=== PATIENT | male | born 1940 | race Caucasian/White ===

== ENCOUNTER 2017-03-28 09:40 | Inpatient (IN) ==
[2017-03-28 10:48] LABS: Basophils % 0.2 % (0.0-0.8); Hematocrit 44.5 VOL% (42.0-52.0); Hemoglobin 14.9 GM/DL (14.0-18.0); Immature Granulocytes % 0.4 %; Immature Granulocytes Absolute 0.06 #; Lymphocytes # 0.4 10*3/uL (1.4-4.0); Lymphocytes % 2.5 % (21.2-54.2); Mean Corpuscular HGB Conc 33.5 GM/DL (32-36); Mean Corpuscular Hemoglobin 29 PG (27-34); Mean Corpuscular Volume 87.4 FL (87-102); Mean Platelet Volume 10.7 FL (9.6-12.0); Monocytes # 0.5 10*3/uL (0.11-0.8); Monocytes % 3.7 % (1.7-12.7); Neutrophils % 93.2 % (38.7-73.9); Platelet Count 121 T/CUMM (130-400); Red Blood Count 5.09 MC/CUMM (3.8-5.5); Red Cell Distribution Width 13.2 % (9.3-17.3); White Blood Count 13.9 T/CUMM (4-12)
--- NOTE | 2017-03-28 10:52 | XRay Report ---
History: Chills and fever. Upper back pain Date: 03/28/2017 Study: Chest x-ray single view portable Comparison exam: May 30, 2013 chest x-ray The cardiac silhouette is upper normal in size. There is no mediastinal mass. The pulmonary vasculature is not engorged. The exam was performed in shallow inspiration. There is some patchy strandy atelectasis with or without pneumonia in the left lower lobe. There is mild strandy subsegmental atelectasis in the medial right lung base. There is no gross pleural effusion. The osseous structures are unremarkable. Impression: Left lower lobe atelectasis with or without underlying pneumonia. Subsegmental atelectasis right lung base. Shallow breath PROCEDURE INTERPRETED AT [facility] DEPARTMENT OF RADIOLOGY Final Report Signed by: Dr. Karey Issa
--- NOTE | 2017-03-28 10:54 | EKG Report ---
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
[2017-03-28 11:02] LABS: ABG Oxygen Saturation 93.1 % (95-100); ABG PCO2 32.6 MM HG (35-48); ABG PH 7.393 (7.35-7.45); ABG PO2 63.5 MM HG (80-95); ABG TCO2 16.9 MMOL/L (23-27)
[2017-03-28 11:06] LABS: Band Neutrophils 9 % (0-10); Lymphocytes 2 % (20-55); Segmented Neutrophils 86 % (50-85); Total Cells Counted 100
[2017-03-28 11:07] LABS: Hypochromasia 1+; Microcytosis 1+; Platelet Estimate Adequate
[2017-03-28 11:09] LABS: Apearance,Urine CLOUDY (Clear); Bilirubin,Urine Negative (Negative); Blood, Urine Moderate mg/dL (Negative); Glucose,Urine (UA) Negative (Negative); Ketones,Urine 5 mg/dL (Negative); Mucus,Urine Occasional /LPF (Occasional); Nitrite,Urine Negative (Negative); Protein,Urine 100 MG/DL; RBC,Urine 394 /HPF (0-4); Urine Color Amber (Yellow); Urine Specific Gravity 1.018 (1.001-1.035); WBC,Urine 61 /HPF (0-6)
--- NOTE | 2017-03-28 11:15 | Emergency Department Note ---
Arrival - Arrival Chief Complaint: Back Stated Complaint: back pain ED Nursing Triage Note: Pt c/o mid back pain since last night. Denies injury. Mode of Arrival: Wheelchair Source: Patient Time Seen by Provider: 03/28/17 10:07 - History of Present Illness HPI Narrative: 76 y/o white male presents to the ER complaining of back pain, fever, chills, nausea, and generalized weakness. Symptoms starting last night. Denies vomiting or diarrhea. Reports he has a history of bladder cancer and has had a radical cystectomy and left nephrectomy. Currently has a right nephrostomy tube. Past medical history hypertension, CAD, CABG x 3, NIDDM. Primary Care Physician: Dr. Velasquez in [place] Onset (ago): day(s) (1) Severity: mild Quality: aching Allergies/Adverse Reactions: Allergies Allergy/AdvReac Type Severity Reaction Status Date / Time No Known Allergies Allergy Verified 07/07/16 06:28 Home Medications: Home Medications Medication Instructions Recorded Confirmed Type Ascorbic Acid [Vitamin C] 1 tablet PO DAILY 06/28/16 06/28/16 History Aspirin [Ecotrin] 81 mg PO DAILY 06/28/16 07/07/16 History Losartan [Cozaar] 1 tablet PO DAILY 06/28/16 07/07/16 History Multivitamin [Multivitamins] 1 tablet PO DAILY 06/28/16 06/28/16 History [place]-3 Fatty Acids [Fish Oil 1 tablet PO DAILY 06/28/16 06/28/16 History Concentrate] Sitagliptin Phosphate [Januvia] 1 tablet PO DAILY 06/28/16 07/07/16 History metFORMIN [Glucophage] 1 tablet PO BID 06/28/16 07/07/16 History Allopurinol 100 mg PO DAILY 07/07/16 07/07/16 History Atenolol 50 mg PO DAILY 07/07/16 07/07/16 History Ferrous Sulfate 1 tablet PO DAILY 07/07/16 07/07/16 History Folic Acid Tab 1 tablet PO DAILY 07/07/16 07/07/16 History Glimepiride 4 mg PO DAILY 07/07/16 07/07/16 History Pantoprazole Tab [Protonix Tab] 40 mg PO DAILY 07/07/16 07/07/16 History Review of System - Review of System 12 point system: reviewed and no additional remarkable complaints except as stated - Review of System Constitutional: Present: chills, fever Gastrointestinal: Present: nausea Musculoskeletal: Present: back pain (Right upper ) Neurological: Present: weakness Medical,Surgical,& Family Hx - Medical History Cardio: History of: CAD, Hypertension HEENT: History of: Eye Problem (GLASSES) Endocrine: History of: Diabetes Mellitus (NIDDM) Renal: History of: Renal Problems (NON FUNCTION L KIDNEY) Genitourinary: History of: Bladder Problem (CANCER), Prostate Problems (CANCER) Reproductive: Reports: Reproductive Problems (PENILE PROSTHESIS) Other: History of: Cancer (SKIN), Skin Problems (CANCER) - Surgical History Cardiac Surgeries: Sugical HX of: Cardiac Surgery (CABGX3 DR HER HX BLOCKAGE) Thoracic Surgeries: Surgical HX of;: Nephrectomy (LEFT) Abdominal Surgeries: Surgical HX of: Colonoscopy, EGD Reproductive Surgeries: Surgical HX of;: Prostate Surgery (REMOVAL) - Family History Family History: Reports;: Family Diabetes (MOM), Family Stroke (DAD) - Social History Smoking Status: Never smoker Exam Vital Signs: Vital Signs Temperature 103.1 F H 03/28/17 11:03 Pulse Rate 82 03/28/17 13:40 Respiratory Rate 18 03/28/17 13:40 Blood Pressure 119/51 03/28/17 13:40 O2 Sat by Pulse Oximetry 95 03/28/17 11:03 - General General appearance: alert, in no apparent distress - ENT ENT exam: Present: normal exam, normal oropharynx, mucous membranes moist - Chest Chest inspection: Present: normal inspection - Respiratory Respiratory exam: Present: normal lung sounds bilaterally - Cardiovascular Cardiovascular exam: Present: regular rate, normal rhythm, normal heart sounds - Abdominal Exam Abdominal exam: Present: soft, normal bowel sounds. Absent: tenderness - Extremities Exam Extremities exam: Present: normal inspection, full ROM - Back Exam Back exam: Present: normal inspection. Absent: tenderness, CVA tenderness (R), CVA tenderness (L) - Neurological Exam Neurological exam: Present: alert, oriented X3 - Psychiatric Psychiatric exam: Present: normal affect, normal mood - Skin Skin exam: Present: warm, dry Course Course Narrative: Discussed case with Dr. Aranda. Dr. Aranda over to evaluate patient. Dr. Goodman PA into evaluate patient - Consultations Consultation #1: Dr. Gilliland Time: 13:00 (Dr. Gilliland will come to ER to evaluate patient ) Results - Labs CBC & BMP: 03/28/17 10:28 03/28/17 10:28 Lab Results: I have reviewed the patients labs - Diagnostic Findings Procedure: Chest x-ray: image reviewed by me, report reviewed by me ( atelectasis in lung bases ), Ultrasound: image reviewed by me, report reviewed by me (cholelithiasis and gallbladder wall thickening; consider acute cholelithiasis ) Disposition Clinical Impression: Gallstone pancreatitis Case discussed with: patient Disposition: Still a Patient Condition: Stable
[2017-03-28] MEDS ORDERED: ACETAMINOPHEN 500 MG TABLET ONE ×2 (11:18→11:21)
[2017-03-28] MEDS ORDERED: ACETAMINOPHEN 500 MG TABLET PO STA (11:18)
[2017-03-28] MEDS: ACETAMINOPHEN 325 MG TABLET PO ONE ×2 (11:22→12:17)
[2017-03-28 11:23] LABS: Alanine Aminotransferase 200 U/L (16-61); Albumin 3.5 G/DL (3.4-5.0); Alkaline Phosphatase 288 U/L (45-117); Aspartate Amino Transferase 251 U/L (0-37); Blood Urea Nitrogen 27 MG/DL (7-18); Calcium 9.1 MG/DL (8.5-10.1); Glucose 148 MG/DL (74-106); Osmolality,Calculated 280.8 MOS/KG (273-304); Potassium 3.9 MMOL/L (3.5-5.1); Sodium 137 MMOL/L (136-145); Total Protein 7.1 G/DL (6.4-8.3); Troponin I Only < 0.015 NG/ML (0.00-0.045)
[2017-03-28] MEDS ORDERED: MORPHINE 2 MG/1 ML SYRINGE IV STA (12:21)
[2017-03-28] MEDS ORDERED: MORPHINE 2 MG/1 ML SYRINGE ONE (12:21)
[2017-03-28] MEDS ORDERED: ONDANSETRON 4 MG/2 ML VIAL IV STA (12:21)
[2017-03-28] MEDS ORDERED: ONDANSETRON 4 MG/2 ML VIAL ONE (12:22)
--- NOTE | 2017-03-28 12:47 | Ultrasound Report ---
History: Hematuria. Right flank pain. Elevated bilirubin. Elevated liver function tests Date: 03/28/2017 Study: Abdominal ultrasound complete Comparison exam: July 27, 2012 Real-time ultrasound images are captured and archived. Numerous highly echogenic mobile gallstones with posterior acoustic shadowing are noted in the lumen of the moderately distended gallbladder. There is gallbladder wall thickening at 3.8 mm. The common bile duct is borderline ectatic at 9.2 mm. There is no obvious intrahepatic biliary dilatation. There is hepatopedal flow in the portal vein. There is no gross hepatic mass, though evaluation is limited because of body habitus. The pancreas is obscured by bowel gas. The left kidney is not visualized and reportedly has been surgically removed. The right kidney measures 10.6 mm length and is without hydronephrosis. There is a 19 mm cyst in the mid upper right kidney. This is likely simple, though it is difficult to demonstrate anechoic nature of this cyst because of body habitus. The abdominal aorta is largely obscured. IVC is generally patent. The spleen measures 14.2 x 5.6 x 5.0 cm and contains a lobular hyperechoic area which is nonspecific but may represent hemangioma. Impression: Cholelithiasis and gallbladder wall thickening. Consider acute cholecystitis. Borderline ectasia of the common bile duct at 9.2 mm. Right renal cyst which may be simple, but is difficult to evaluate because of patient body habitus. Prior left nephrectomy. Probable splenic hemangioma PROCEDURE INTERPRETED AT [facility] DEPARTMENT OF RADIOLOGY Final Report Signed by: Dr. Karey Issa
[2017-03-28] MEDS ORDERED: PIPERACILLIN/TAZOBACTAM 3,375 MG in SODIUM CHLORIDE 0.9% 100 ML IV STA (12:54)
[2017-03-28] MEDS ORDERED: PIPERACILLIN/TAZOBACTAM 3,375 MG VIAL IV ONE (13:01)
[2017-03-28] MEDS ORDERED: SODIUM CHLORIDE 0.9% 100 ML IV ONE (13:03)
--- NOTE | 2017-03-28 14:30 | CT Report ---
History: Pancreatitis Date: 03/28/2017 Study: CT abdomen and pelvis without contrast Comparison exam: December 10, 2012 CT abdomen and pelvis with contrast Technique: Spiral CT sections were obtained from the lung bases to the pubic symphysis without contrast. The CT exam was performed using one or more of the following dose reduction techniques: Automated exposure control, adjustment of the mA and/or kV according to patient size, or use of iterative reconstruction technique. CT abdomen: There is mild strandy subsegmental atelectasis in the lower lungs. There is mild to moderate coronary artery calcification. There is no gross pleural or pericardial effusion. There is prominent distention of the gallbladder. There are some gallstones layering in the dependent portion of the gallbladder lumen. The liver and bile ducts are grossly unremarkable in noncontrast appearance. There is mild diffuse fatty infiltration of the pancreas. There is some minimal strandiness in the fat adjacent to the head of the pancreas which could represent a subtle secondary sign of pancreatitis. There is no obvious pseudocyst. There is a 34 mm right adrenal adenoma without change. The left adrenal gland is normal. The left kidney has been resected. There is no gross renal mass on the right, though evaluation is limited without the benefit of IV contrast. There is no radiopaque renal or ureteral stone on the right. The urinary bladder has been resected. A right lower quadrant urostomy is present. There is no evidence of pneumoperitoneum. The appendix is normal. There is no aneurysm of the moderately calcified, aorta. There is no gross lymphadenopathy by short axis diameter criteria. CT pelvis: Penile prosthesis is in place. There is no obvious soft tissue mass in the pelvis. Impression: Cholelithiasis and moderate gallbladder distention. Minimal strandy density in the fat adjacent to the head of the pancreas which could be a secondary sign of pancreatitis Previous cystectomy and left nephrectomy Other nonacute findings discussed above PROCEDURE INTERPRETED AT [facility] DEPARTMENT OF RADIOLOGY Final Report Signed by: Dr. Karey Issa
--- NOTE | 2017-03-28 15:01 | General Surg History&Physical ---
Assessment and Plan (1) Gallstone pancreatitis Status: Acute Assessment and plan: At this juncture, it appears the patient likely has gallstone pancreatitis. We will obtain CT scan. Consult gastroenterology for assistanceappreciate input. We will proceed with aggressive IV hydration, analgesics, n.p.o., and continue with IV antibiotics. It appears the patient may also have associated cholecystitis as he presented febrile with leukocytosis, and there are other possible sources of infection as below. We will follow these along. Repeat labs in the morning. Current Visit: Yes (2) Atelectasis of both lungs Status: Acute Assessment and plan: Is likely complete compensatory with pain he has been having associated with above. Will encourage incentive spirometer and monitor. Oxygen as warranted. No History of pulmonary disease. Current Visit: Yes (3) Urinary tract bacterial infections Status: Acute Assessment and plan: Patient with urostomy bag with gross hematuria. Continue with IV antibiotics, monitor output, monitor renal function, and follow cultures. Current Visit: Yes (4) Renal insufficiency Status: Acute Assessment and plan: Appears chronic patient when compared to previous labs. Has known single kidney status. Avoid nephrotoxic agents, renally dose medications as required, monitor urine output. Repeat labs in the morning. Current Visit: Yes (5) Diabetes mellitus type 2 in obese Status: Acute Assessment and plan: HOld metformin. Resume home meds. Low dose SSI. Current Visit: Yes (6) Co-morbid condition Status: Acute Assessment and plan: H/o HTN - home meds and monitor H/o Gout - home meds and monitor for flare. may be modified if kidney function worsens. H/o CAD s/p CABG - pt maintains active lifestyle and is asx apparently stable. Monitor. Current Visit: Yes (7) Prophylactic measure Status: Acute Assessment and plan: DVT ppx: SCD. Hold lovenox until clear surgical decisions mad.e GI ppx: PPI daily. Dispo: anticipate d/c home when ready Current Visit: Yes History of Present Illness Chief complaint: Back pain History of present illness: Mr. Culp is a 76 year old male with past medical history bladder cancer status post cystectomy with urostomy, left nephrectomy, CAD status post CABG 2010, hypertension and diabetes mellitus who presented to the emergency department with complaints of back pain and suspected fever. The patient reports no history of biliary colic or pancreatitis but he noted feeling "feverish" yesterday evening. Approximately midnight he began to experience severe pain in his back which has persistent is unrelenting. He describes the pain as severe and aching. Improved with leaning forward worse with lying back in his blood sugar improved since receiving analgesics in the emergency department. He reports associated nausea without vomiting or diarrhea; no melena, hematochezia, bright red blood per rectum or reflux symptoms. No anorexia, early satiety or recent weight loss. Patient has a remote history of CAD with CABG performed 12/2010. He follows with Dr. Jc locally. He denies any symptoms of dyspnea on exertion, chest pain, palpitations, PND orthopnea. He describes active lifestyle going to the gym. [place] for 3 days per week walking 1 mile, stationary biking, and lifting weights. Home Medications Medication Instructions Recorded Confirmed Type Ascorbic Acid [Vitamin C] 1 tablet PO DAILY 06/28/16 06/28/16 History Aspirin [Ecotrin] 81 mg PO DAILY 06/28/16 07/07/16 History Losartan [Cozaar] 1 tablet PO DAILY 06/28/16 07/07/16 History Multivitamin [Multivitamins] 1 tablet PO DAILY 06/28/16 06/28/16 History [place]-3 Fatty Acids [Fish Oil 1 tablet PO DAILY 06/28/16 06/28/16 History Concentrate] Sitagliptin Phosphate [Januvia] 1 tablet PO DAILY 06/28/16 07/07/16 History metFORMIN [Glucophage] 1 tablet PO BID 06/28/16 07/07/16 History Allopurinol 100 mg PO DAILY 07/07/16 07/07/16 History Atenolol 50 mg PO DAILY 07/07/16 07/07/16 History Ferrous Sulfate 1 tablet PO DAILY 07/07/16 07/07/16 History Folic Acid Tab 1 tablet PO DAILY 07/07/16 07/07/16 History Glimepiride 4 mg PO DAILY 07/07/16 07/07/16 History Pantoprazole Tab [Protonix Tab] 40 mg PO DAILY 07/07/16 07/07/16 History Allergies Allergy/AdvReac Type Severity Reaction Status Date / Time No Known Allergies Allergy Verified 07/07/16 06:28 Medical,Surgical,& Family Hx - Medical History Cardio: History of: CAD, Hypertension No history of: CHF Neurology: No history of: Cerebrovascular Accident, TIA HEENT: History of: Eye Problem (GLASSES) Endocrine: History of: Diabetes Mellitus (NIDDM) No history of: Thyroid Disorder Respiratory: No history of: Asthma, COPD Renal: History of: Renal Problems (NON FUNCTION L KIDNEY) Genitourinary: History of: Bladder Problem (CANCER), Prostate Problems (CANCER) Gastrointestinal: No history of: Bowel Obstruction, Pancreatitis, GI Problems Hematology: No history of: Bleeding Problems, Clotting Problems Reproductive: Reports: Reproductive Problems (PENILE PROSTHESIS) Other: History of: Cancer (SKIN), Skin Problems (CANCER) - Surgical History Cardiac Surgeries: Sugical HX of: Cardiac Surgery (CABGX3 DR HER HX BLOCKAGE) Thoracic Surgeries: Surgical HX of;: Nephrectomy (LEFT) Abdominal Surgeries: Surgical HX of: Colonoscopy, EGD Reproductive Surgeries: Surgical HX of;: Genitourinary Surgery (Cystectomy with urostomy; penile implant) - Family History Family History: Reports;: Family Diabetes (MOM), Family Stroke (DAD) - Social History Smoking Status: Never smoker Frequency of Alcohol Use: Occasionally Functional capacity: independent ambulation Exam - Constitutional General appearance: no acute distress, over weight - Head Head exam: Present: normal inspection, normocephalic - Respiratory Respiratory exam: Present: clear to auscultation bilaterally - Cardiovascular Cardiovascular exam: Present: RRR - GI/Abdominal GI/Abdominal exam: Present: normal bowel sounds, soft. Absent: ascites, guarding, Caceres's sign, tenderness, rebound - Extremities Exam Extremities exam: Present: normal capillary refill. Absent: calf tenderness, edema - Back Exam Back exam: Absent: CVA tenderness (L), CVA tenderness (R) - Neurological Exam Neurological exam: Present: alert, oriented X3 - Skin Skin exam: Present: normal color, warm. Absent: cyanosis - Constitutional Constitutional: Present: as per HPI - Cardiovascular Cardiovascular: Present: as per HPI - Respiratory Respiratory: Present: as per HPI. Absent: cough, wheezing - Gastrointestinal Gastrointestinal: Present: as per HPI - Genitourinary Genitourinary: Present: hematuria Hematologic/Lymphatic: Absent: easy bleeding, easy bruising Results - Labs CBC & BMP: 03/28/17 10:28 03/28/17 10:28 Labs: ABG reviewed. Lipase > 13K Bili5.3 [id number] UA: (+)ketones; moderate blood; moderate leukocytes; 61 SBC/hpf --> culture pending Cardiac enzymes(-) - EKG EKG shows: sinus rhythm - Diagnostic Findings Procedure: Chest x-ray: image reviewed by me, report reviewed by me, Ultrasound : image reviewed by me, report reviewed by me (abd US: Cholelithiasis with gallbladder thickening concerning for acute cholecystitis; bile duct 9.2 mm. Suspected splenic hemangioma.)
[2017-03-28] MEDS ORDERED: ACETAMINOPHEN 325 MG TABLET PO PRN (15:19)
[2017-03-28] MEDS ORDERED: ONDANSETRON 4 MG/2 ML VIAL IV PRN (15:19)
[2017-03-28] MEDS ORDERED: BISACODYL 5 MG TABLET PO PRN (15:19)
[2017-03-28] MEDS ORDERED: DEXTROSE 50% 25 GM/50 ML VIAL IV PRN (15:19)
[2017-03-28] MEDS ORDERED: GLUCAGON 1 MG VIAL IM PRN (15:19)
[2017-03-28] MEDS: SODIUM CHLORIDE 0.9% 1,000 ML IV SCH ×2 (15:31→21:59)
--- NOTE | 2017-03-28 15:46 | Gastrointestinal Consult Note ---
Assessment and Plan (1) Gallstone pancreatitis Status: Acute Assessment and plan: 03/28-sudden onset of abdominal pain severe in nature, with findings on admission of elevated LFTs, elevated lipase. CT and abdominal ultrasound results noted to show cholelithiasis with dilated common bile duct at 9.2 mm, possible acute cholecystitis. Continue n.p.o., IV fluids and analgesics as needed. Tentative ERCP tomorrow. Plan an addendum to followed by Dr. Issa Current Visit: Yes History of Present Illness Chief complaint: Gallstone pancreatitis History of present illness: Mr. Culp is a 76 year old male who presented to the emergency room with sudden onset of severe abdominal pain. Patient has a prior history of bladder cancer with cystectomy with urostomy as well as left nephrectomy, and CABG in 2010. Patient also has a history of hypertension and diabetes mellitus. Patient states that he was in his usual state of health until yesterday afternoon. He states that he returned from [place], and was not feeling very well. He had an onset of right upper quadrant pain that radiated to his back that was not severe in nature initially however as the night progressed to became more severe. He denies any nausea or vomiting associated with this. Denies any fever or chills although states he did feel "feverish" during the afternoon. He states that he should have come to the emergency room sooner however he was trying to hold out until the morning with the pain. States he has never had pain like this in the past. States the pain was not precipitated by any known factors and states the last meal he ate was 4 hours prior to the pain onset. Upon admission he was found to have elevated liver enzymes with bilirubin of 5.3 , AST 251, ALT 200, alkaline phosphatase 288. He was also found to have an elevated lipase of 13,687. WBCs 13.9. CT of abdomen on admission showed cholelithiasis with moderate gallbladder distention. Abdominal ultrasound shows cholelithiasis and gallbladder wall thickening with possible acute cholecystitis and common bile duct at 9.2 mm. Pancreas is noted to be obscured by bowel gas. Home Medications Medication Instructions Recorded Confirmed Type Ascorbic Acid [Vitamin C] 1 tablet PO DAILY 06/28/16 06/28/16 History Aspirin [Ecotrin] 81 mg PO DAILY 06/28/16 07/07/16 History Losartan [Cozaar] 1 tablet PO DAILY 06/28/16 07/07/16 History Multivitamin [Multivitamins] 1 tablet PO DAILY 06/28/16 06/28/16 History [place]-3 Fatty Acids [Fish Oil 1 tablet PO DAILY 06/28/16 06/28/16 History Concentrate] Sitagliptin Phosphate [Januvia] 1 tablet PO DAILY 06/28/16 07/07/16 History metFORMIN [Glucophage] 1 tablet PO BID 06/28/16 07/07/16 History Allopurinol 100 mg PO DAILY 07/07/16 07/07/16 History Atenolol 50 mg PO DAILY 07/07/16 07/07/16 History Ferrous Sulfate 1 tablet PO DAILY 07/07/16 07/07/16 History Folic Acid Tab 1 tablet PO DAILY 07/07/16 07/07/16 History Glimepiride 4 mg PO DAILY 07/07/16 07/07/16 History Pantoprazole Tab [Protonix Tab] 40 mg PO DAILY 07/07/16 07/07/16 History Allergies Allergy/AdvReac Type Severity Reaction Status Date / Time No Known Allergies Allergy Verified 07/07/16 06:28 Medical,Surgical,& Family Hx - Medical History Cardio: History of: CAD, Hypertension No history of: CHF Neurology: No history of: Cerebrovascular Accident, TIA HEENT: History of: Eye Problem (GLASSES) Endocrine: History of: Diabetes Mellitus (NIDDM) No history of: Thyroid Disorder Respiratory: No history of: Asthma, COPD Renal: History of: Renal Problems (NON FUNCTION L KIDNEY) Genitourinary: History of: Bladder Problem (CANCER), Prostate Problems (CANCER) Gastrointestinal: No history of: Bowel Obstruction, Pancreatitis, GI Problems Hematology: No history of: Bleeding Problems, Clotting Problems Reproductive: Reports: Reproductive Problems (PENILE PROSTHESIS) Other: History of: Cancer (SKIN), Skin Problems (CANCER) - Surgical History Cardiac Surgeries: Sugical HX of: Cardiac Surgery (CABGX3 DR HER HX BLOCKAGE) Thoracic Surgeries: Surgical HX of;: Nephrectomy (LEFT) Patient denies;: Organ Transplant Abdominal Surgeries: Surgical HX of: Colonoscopy, EGD Reproductive Surgeries: Surgical HX of;: Genitourinary Surgery (Cystectomy with urostomy; penile implant), Prostate Surgery (REMOVAL) - Family History Family History: Reports;: Family Diabetes (MOM), Family Stroke (DAD) - Social History Smoking Status: Never smoker Frequency of Alcohol Use: Rarely Type of Drug Use: None 12 point system: reviewed and no additional remarkable complaints except as stated - Constitutional Constitutional: Present: as per HPI - EENT Eyes: Present: as per HPI Ears: Present: as per HPI Nose, mouth and throat: Present: as per HPI - Cardiovascular Cardiovascular: Present: as per HPI - Respiratory Respiratory: Present: as per HPI - Gastrointestinal Gastrointestinal: Present: as per HPI, abdominal pain - Genitourinary Genitourinary: Present: as per HPI - Musculoskeletal Musculoskeletal: Present: as per HPI - Neurological Neurological: Present: as per HPI - Psychiatric Psychiatric: Present: as per HPI - Endocrine Endocrine: Present: as per HPI - Hematologic/Lymphatic Hematologic/Lymphatic: Present: as per HPI Exam - Constitutional General appearance: normal weight, no acute distress - Head Head exam: Present: normal inspection, normocephalic - Eye Eye exam: Present: other (Lids and conjunctive are unremarkable). Absent: scleral icterus - ENT ENT exam: Present: normal exam, normal oropharynx - Neck Neck exam: Present: normal inspection - Respiratory Respiratory exam: Present: clear to auscultation bilaterally. Absent: rales, rhonchi, wheezes - Cardiovascular Cardiovascular exam: Present: regular rate and rhythm. Absent: diastolic murmur , JVD, systolic murmur - GI/Abdominal GI/Abdominal exam: Present: normal bowel sounds, tenderness, soft. Absent: ascites, distended, mass, organomegaly - Extremities Exam Extremities exam: Present: normal inspection, full ROM - Back Exam Back exam: Present: normal inspection - Neurological Exam Neurological exam: Present: alert, oriented X3 - Psychiatric Psychiatric exam: Present: normal affect, normal mood - Skin Skin exam: Present: normal color, warm, dry Results - Labs CBC & BMP: 03/28/17 10:28 03/28/17 10:28 Lab Results: I have reviewed the past 24 hour labs - Diagnostic Findings Procedure: CT Abdomen and Pelvis: report reviewed by me, Ultrasound: report reviewed by me Quality Measures - VTE Contraindication to Pharmacological VTE Prophylaxis: Thrombocytopenia
[2017-03-28] MEDS: INSULIN REGULAR 100 UNIT/ML SUBCUT SCH (18:02)
[2017-03-28] MEDS: PIPERACILLIN/TAZOBACTAM 3,375 MG in SODIUM CHLORIDE 0.9% 100 ML IV SCH (21:58)
[2017-03-29] MEDS: INSULIN REGULAR 100 UNIT/ML SUBCUT SCH ×4 (00:12→17:50)
[2017-03-29] MEDS: PIPERACILLIN/TAZOBACTAM 3,375 MG in SODIUM CHLORIDE 0.9% 100 ML IV SCH ×3 (05:43→21:23)
[2017-03-29 06:28] LABS: Basophils % 0.2 % (0.0-0.8); Hematocrit 39.6 VOL% (42.0-52.0); Hemoglobin 13.1 GM/DL (14.0-18.0); Immature Granulocytes % 0.6 %; Immature Granulocytes Absolute 0.07 #; Lymphocytes # 0.6 10*3/uL (1.4-4.0); Mean Corpuscular HGB Conc 33.1 GM/DL (32-36); Mean Corpuscular Hemoglobin 29 PG (27-34); Mean Corpuscular Volume 86.8 FL (87-102); Mean Platelet Volume 11.8 FL (9.6-12.0); Monocytes # 0.9 10*3/uL (0.11-0.8); Monocytes % 7.1 % (1.7-12.7); Neutrophils # 10.9 10*3/uL (1.4-7.4); Neutrophils % 87.1 % (38.7-73.9); Platelet Count 106 T/CUMM (130-400); Red Blood Count 4.56 MC/CUMM (3.8-5.5); Red Cell Distribution Width 13.7 % (9.3-17.3); White Blood Count 12.5 T/CUMM (4-12)
[2017-03-29 06:50] LABS: Bilirubin,Total 7.9 MG/DL (0.2-1.0); Calcium 7.9 MG/DL (8.5-10.1); Potassium 3.7 MMOL/L (3.5-5.1); Total Protein 5.9 G/DL (6.4-8.3)
[2017-03-29] MEDS: SODIUM CHLORIDE 0.9% 1,000 ML IV SCH (07:31)
[2017-03-29 07:33] LABS: INR 1.4; PT Patient Result 14.6 SECS
[2017-03-29] MEDS: ATENOLOL 50 MG TABLET PO SCH (08:48)
[2017-03-29] MEDS ORDERED: KETOROLAC 30 MG/1 ML VIAL ONE (09:05)
[2017-03-29] MEDS ORDERED: LIDOCAINE 100 MG/5 ML SYRINGE ONE (09:05)
[2017-03-29] MEDS ORDERED: GLYCOPYRROLATE 0.4 MG/2 ML VIAL ONE (09:05)
[2017-03-29] MEDS ORDERED: ROCURONIUM 100 MG/10 ML VIAL IV ONE (09:05)
[2017-03-29] MEDS ORDERED: SUCCINYLCHOLINE 200 MG/10 ML VIAL ONE (09:05)
[2017-03-29] MEDS ORDERED: PHENYLEPHRINE 1 MG/10 ML SYRINGE IV ONE (09:05)
[2017-03-29] MEDS ORDERED: ONDANSETRON 4 MG/2 ML VIAL ONE ×2 (09:05→12:24)
[2017-03-29] MEDS ORDERED: LACTATED RINGERS 500 ML IV ONE (09:30)
--- NOTE | 2017-03-29 09:30 | General Surgery Progress Note ---
Assessment and Plan (1) Gallstone pancreatitis Status: Acute Assessment and plan: The patient's bilirubin is going up and his creatinine has worsened some. We will get increased IV fluids going and continue antibiotics. His antibiotics have a consult placed for pharmacy to dose this based on renal function will make sure that this is done. Plan for ERCP today and ultimately he will need his gallbladder removed before discharge. Current Visit: Yes Subjective Patient reports: Present: no new complaints, feels better, still having pain, pain is less, afebrile Narrative: The patient had 2 blood cultures come back with gram-negative rods and his bilirubin is going up today. His pancreatitis appears to be improving at least on a serology with a decreased lipase today. Dr. Issa has seen him and tentatively plan for ERCP today. Exam - Constitutional Vitals: Period Temp Pulse Resp BP Sys/Lantigua Pulse Ox Last 24 Hr 97 F-98.5 F 57-84 16-20 110-118/50-59 90-96 General appearance: no acute distress, over weight - Head Head exam: Present: normal inspection, normocephalic - Eye Eye exam: Present: EOMI Pupils: Present: AIDEN - ENT ENT exam: Present: normal exam Mouth exam: Present: normal external inspection, normal voice - Neck Neck exam: Present: normal inspection, trachea midline - Respiratory Respiratory exam: Present: clear to auscultation bilaterally. Absent: accessory muscle use, chest wall tenderness - Cardiovascular Cardiovascular exam: Present: RRR. Absent: systolic murmur, tachycardia - GI/Abdominal GI/Abdominal exam: Present: normal bowel sounds, soft. Absent: distended, tenderness, rebound - Extremities Exam Extremities exam: Present: normal inspection, normal capillary refill - Back Exam Back exam: Present: normal inspection - Neurological Exam Neurological exam: Present: alert, oriented X3 Speech: Present: normal - Skin Skin exam: Present: normal color, warm Results - Labs CBC & BMP: 03/29/17 04:59 03/29/17 04:59 Quality Measures - VTE Contraindication to Pharmacological VTE Prophylaxis: Thrombocytopenia
--- NOTE | 2017-03-29 12:02 | Cardiology Consult Note ---
Ella Wallace April, RN, am scribing for, and in the presence of, SoledadShirleyDO 11 :59. Assessment and Plan - Time spent with patient Time spent with patient: Greater than 30 minutes (Due to assessment, planning, documentation, medication review) (1) Preoperative cardiovascular examination Status: Acute Assessment and plan: No further CV work up of evaluation prior to proposed surgcial intervention. Current Visit: Yes (2) CAD (coronary artery disease) Status: Chronic Current Visit: Yes Qualifiers: Coronary Disease-Associated Artery/Lesion type: bypass graft [place] vs. 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 Culp is a 76 year old male who is routinely followed by Dr. Jc with a history of hypertension, dyslipidemia, malignant neoplasm of the bladder, CAD, and NIDDM. He had CABG by Dr. Her in March 2011 with MARSHALL to LAD, saphenous vein graft to ramus intermedius, and saphenous vein graft to obtuse marginal. He has not had a heart cath since that time. Other surgical history includes left nephrectomy, cystectomy with urostomy, hernia repair, prostate, and penile implant. Family history includes father with stroke and mother with diabetes. Reports is a lifetime non-smoker. He was in his usual state of health until midnight when he began to have pain in the middle part of his back. He denies having any chest pain, shortness of breath, nausea, or vomiting. His back pain was associated with a "chill". CT of the abdomen noted cholelithiasis and mild common bile duct dilation. He tells me he is scheduled for ERCP with Dr. Issa today with possible cholecystectomy tomorrow. He reports he was given morphine in the emergency department and this relieved his pain. He has not had any chest pain, shortness of breath, palpitations, or dizziness. Vital signs been stable, blood pressure 117/56. His platelet count is low at 106. Creatinine was 1.6 on admission, it is 2.0 today. His liver enzymes are elevated. EKG done yesterday sinus rhythm with heart rate of 81. Mr. Vigil is a very active and pleasant 76-year-old patient Dr. Awais Jc who had an abnormal stress test in 2010 after generalized complaint of fatigue found to have severe three-vessel coronary disease and underwent coronary bypass grafting by Dr. Angus Her. He is now in with pancreatitis and schedule for ERCP followed by cholecystectomy. He has no cardiopulmonary complaints. He lives independently. I have seen him in the gym and [employer] he walks and works out with weights on daily basis without any cardiopulmonary symptoms. His EKG shows no acute changes he has no orthopnea he has no chest pain no lower extremity edema no signs or symptoms of heart failure including rales lower extremity edema or orthopnea. I discussed with him he has a completely negative review of systems from a cardiopulmonary standpoint I recommend proceed with proposed cholecystectomy and ERCP without further cardiovascular workup or evaluation. We will continue to follow if assistance is needed. I saw and examined the patient with Ella and agree with her assessment in the above history. CC: Obi Gilliland MD - Home Medications and Allergies Home Medications: Home Medications Medication Instructions Recorded Confirmed Type Ascorbic Acid [Vitamin C] 1 tablet PO DAILY 06/28/16 03/28/17 History Aspirin [Ecotrin] 81 mg PO DAILY 06/28/16 03/28/17 History Multivitamin [Multivitamins] 1 tablet PO DAILY 06/28/16 03/28/17 History [place]-3 Fatty Acids [Fish Oil 1 tablet PO DAILY 06/28/16 03/28/17 History Concentrate] Sitagliptin Phosphate [Januvia] 1 tablet PO DAILY 06/28/16 03/28/17 History metFORMIN [Glucophage] 1 tablet PO BID 06/28/16 03/28/17 History Allopurinol 100 mg PO DAILY 07/07/16 03/28/17 History Atenolol 25 mg PO DAILY 07/07/16 03/28/17 History Ferrous Sulfate 1 tablet PO DAILY 07/07/16 03/28/17 History Folic Acid Tab 1 tablet PO DAILY 07/07/16 03/28/17 History Glimepiride 4 mg PO DAILY 07/07/16 03/28/17 History Pantoprazole Tab [Protonix Tab] 40 mg PO DAILY 07/07/16 03/28/17 History Atorvastatin [Lipitor] 20 mg PO DAILY 03/28/17 03/28/17 History Losartan Potassium [Cozaar] 100 mg PO DAILY 03/28/17 03/28/17 History Allergies/Adverse Reactions: Allergies Allergy/AdvReac Type Severity Reaction Status Date / Time No Known Allergies Allergy Verified 07/07/16 06:28 - Constitutional Constitutional: Present: as per HPI - EENT Eyes: Present: requires corrective lense Ears: Absent: decreased hearing, tinnitus Nose, mouth and throat: Absent: dysphagia, epistaxis, headache(s), neck pain, sore throat - Cardiovascular Cardiovascular: Absent: chest pain at rest, chest pain with activity, diaphoresis, dyspnea, dyspnea on exertion, edema, radiating jaw, neck or arm pain, lightheadedness, orthopnea, palpitations - Respiratory Respiratory: Absent: cough, dyspnea, hemoptysis, dyspnea on exertion, wheezing - Gastrointestinal Gastrointestinal: Absent: abdominal pain, constipation, diarrhea, hematemesis, hematochezia, melena, nausea, vomiting - Genitourinary Genitourinary: Present: hematuria, other (Urostomy) - Musculoskeletal Musculoskeletal: Present: back pain. Absent: limited range of motion, muscle weakness - Neurological Neurological: Absent: abnormal gait, abnormal speech, confusion, dizziness, focal weakness, frequent falls, syncope - Psychiatric Psychiatric: Absent: anxiety, depression - Endocrine Endocrine: Present: fatigue - Hematologic/Lymphatic Hematologic/Lymphatic: Absent: easy bleeding, easy bruising Medical,Surgical,& Family Hx - Medical History Cardio: History of: CAD (No previous VT and EF has been preserved. CABG 2010- Bernabe), Hypertension HEENT: History of: Eye Problem (GLASSES) Endocrine: History of: Diabetes Mellitus (NIDDM) Renal: History of: Renal Problems (Left nephrectomy) Genitourinary: History of: Bladder Problem (CANCER), Prostate Problems (CANCER) Reproductive: Reports: Reproductive Problems (PENILE PROSTHESIS) Other: History of: Cancer (SKIN), Skin Problems (CANCER) - Surgical History Cardiac Surgeries: Sugical HX of: Cardiac Surgery (CABGX3 DR HER 2010) Thoracic Surgeries: Surgical HX of;: Nephrectomy (LEFT) Abdominal Surgeries: Surgical HX of: Colonoscopy, EGD Reproductive Surgeries: Surgical HX of;: Genitourinary Surgery (Cystectomy with urostomy; penile implant), Prostate Surgery (REMOVAL) - Family History Family History: Reports;: Family Diabetes (MOM), Family Stroke (DAD) - Social History Smoking Status: Never smoker Have you smoked in the last 12 months: No Frequency of Alcohol Use: None Type of Drug Use: None Marital Status: Life Partner Lives With:: Children Functional capacity: independent ambulation Physical Examination Vital Signs Temp Pulse Resp BP Pulse Ox 99.3 F 81 18 120/72 94 L 03/28/17 09:41 03/28/17 09:41 03/28/17 09:41 03/28/17 09:41 03/28/17 09:41 General: Present: Appears Well, No Apparent Distress HEENT: Present: PERRL, Mucus Membranes Moist Neck: Present: Supple Neck, Midline Trachea, No Bruit Cardiac: Present: Regular Rhythm, No Murmur Lungs: Present: Normal Breath Sounds, No Wheeze, Rales, Rhonchi Neuro: Absent: Resting Tremor, Essential Tremor Abdomen: Present: Soft, Active Bowel Sounds, Non-Tender. Absent: Distended Skin: Absent: Rash, Suspicious Lesions Gait: Present: Normal Gait Extremities: Present: Normal Gait, No Edema, Normal Upper Extr. Pulses, Normal Lower Extr. Pulses Result/EKG - Labs CBC & BMP: 03/29/17 04:59 03/29/17 04:59 Lab Results: I have reviewed the past 24 hour labs Labs: Laboratory Results - last 24 hr 03/28/17 03/28/17 03/28/17 17:06 17:53 20:25 WBC RBC Hgb Hct MCV MCH MCHC RDW Plt Count MPV Neut % (Auto) Lymph % (Auto) [place] % (Auto) Eos % (Auto) Baso % (Auto) Neut # (Auto) Lymph # (Auto) [place] # (Auto) Eos # (Auto) Baso # (Auto) Immature Gran % Nucleated RBC % Immature Gran # Nucleated RBCs # INR PT Patient/Control Mix Sodium Potassium Chloride Carbon Dioxide Anion Gap BUN Creatinine GFR Calculation BUN/Creatinine Ratio Glucose POC Glucose 231 H 247 H 257 H Calculated Osmolality Calcium Total Bilirubin Direct Bilirubin AST ALT Alkaline Phosphatase Total Protein Albumin Globulin Albumin/Globulin Ratio Lipase 03/28/17 03/29/17 03/29/17 23:32 04:59 04:59 WBC 12.5 H RBC 4.56 Hgb 13.1 L Hct 39.6 L MCV 86.8 L MCH 29 MCHC 33.1 RDW 13.7 Plt Count 106 L MPV 11.8 Neut % (Auto) 87.1 H Lymph % (Auto) 5.0 L Johnston % (Auto) 7.1 Eos % (Auto) 0.0 Baso % (Auto) 0.2 Neut # (Auto) 10.9 H Lymph # (Auto) 0.6 L Johnston # (Auto) 0.9 H Eos # (Auto) 0.0 Baso # (Auto) 0.0 Immature Gran % 0.6 Nucleated RBC % 0.0 Immature Gran # 0.07 Nucleated RBCs # 0.00 INR PT Patient/Control Mix Sodium Potassium Chloride Carbon Dioxide Anion Gap BUN Creatinine GFR Calculation BUN/Creatinine Ratio Glucose POC Glucose 248 H Calculated Osmolality Calcium Total Bilirubin Direct Bilirubin AST ALT Alkaline Phosphatase Total Protein Albumin Globulin Albumin/Globulin Ratio Lipase 2642.0 H D 03/29/17 03/29/17 03/29/17 04:59 04:59 05:45 WBC RBC Hgb Hct MCV MCH MCHC RDW Plt Count MPV Neut % (Auto) Lymph % (Auto) Johnston % (Auto) Eos % (Auto) Baso % (Auto) Neut # (Auto) Lymph # (Auto) Johnston # (Auto) Eos # (Auto) Baso # (Auto) Immature Gran % Nucleated RBC % Immature Gran # Nucleated RBCs # INR PT Patient/Control Mix Sodium 143 Potassium 3.7 Chloride 110 H Carbon Dioxide 24 Anion Gap 12.7 BUN 37 H D Creatinine 2.00 H GFR Calculation 45 BUN/Creatinine Ratio 18.00 Glucose 150 H POC Glucose 138 H Calculated Osmolality 296.0 Calcium 7.9 L Total Bilirubin 7.90 H Direct Bilirubin 5.30 H AST 145 H ALT 202 H Alkaline Phosphatase 223 H Total Protein 5.9 L Albumin 3.0 L Globulin 2.9 Albumin/Globulin Ratio 1.0 L Lipase 03/29/17 07:13 WBC RBC Hgb Hct MCV MCH MCHC RDW Plt Count MPV Neut % (Auto) Lymph % (Auto) [place] % (Auto) Eos % (Auto) Baso % (Auto) Neut # (Auto) Lymph # (Auto) [place] # (Auto) Eos # (Auto) Baso # (Auto) Immature Gran % Nucleated RBC % Immature Gran # Nucleated RBCs # INR 1.4 PT Patient/Control Mix 14.6 Sodium Potassium Chloride Carbon Dioxide Anion Gap BUN Creatinine GFR Calculation BUN/Creatinine Ratio Glucose POC Glucose Calculated Osmolality Calcium Total Bilirubin Direct Bilirubin AST ALT Alkaline Phosphatase Total Protein Albumin Globulin Albumin/Globulin Ratio Lipase - Diagnostic Findings Procedure: Chest x-ray: report reviewed by me, CT Abdomen and Pelvis: report reviewed by me, Ultrasound: report reviewed by me - EKG EKG results: interpreted by me EKG shows: sinus rhythm Quality Measures - VTE Contraindication to Pharmacological VTE Prophylaxis: Thrombocytopenia I, Shirley Rowe, DO, personally performed the services described in this documentation, ascribed by Mahnaz Jaramillo RN in my presence, and it is both accurate and complete .
[2017-03-29] MEDS ORDERED: fentaNYL 100 MCG/2 ML VIAL ONE (12:13)
[2017-03-29] MEDS ORDERED: MIDAZOLAM 2 MG/2 ML VIAL ONE (12:13)
[2017-03-29] MEDS ORDERED: LIDOCAINE 2% 5 ML VIAL ONE (12:24)
[2017-03-29] MEDS ORDERED: PROPOFOL 200 MG/20 ML VIAL IV ONE (12:24)
--- NOTE | 2017-03-29 12:25 | History and Physical Update ---
History and Physical Update - History and Physical H&P was reviewed, the patient examined and there: are no changes in the patients condition since last H&P was completed. - Physical Exam Mental Status: alert and oriented Heart: regular rate and rhythm Lung: clear to auscultation Abdomen: within normal limits Vitals: within normal limits
--- NOTE | 2017-03-29 13:09 | Anesthesia Post-Op ---
Anesthesia Post OP - Post Ansesthetic Evaluation Patient seen in post op: Yes Resp: within normal limits CV: within normal limits Mental: within normal limits Temp: within normal limits [id number]: within normal limits Nausea and Vomiting: within normal limits Pain: within normal limits
--- NOTE | 2017-03-29 13:13 | Operative Note ---
Date of procedure: 03/29/17 Pre-op diagnosis: Gallstone pancreatitis, dilated common bile duct Procedure: Procedure: Endoscopic retrograde cholangiopancreatography with common bile duct sphincterotomy and common bile duct stones/sludge removal with balloon Brief clinical abstract: Patient is a 76-year-old male admitted with acute pancreatitis. He is noted to have evidence of obstructive jaundice and gallstones on imaging. His total bilirubin was 7 today. Procedure findings: After informed consent was obtained, patient was placed in the prone position. Therapeutic video duodenoscope was inserted into the upper esophagus in blind fashion with no resistance encountered. Esophageal mucosa appeared normal. Stomach was examined including retroflexed view of the cardia and fundus with no abnormality seen. I had difficulty intubating the pylorus in this position so we repositioned him into the left lateral decubitus position where he remained for the remainder of the procedure. Pyloric channel , duodenal bulb, second and third portion of the duodenum occluding the appearance of the ampulla were normal. Sphincterotome was used and initially pancreatogram obtained. Head neck body and tail were opacified with normal appearance and caliber of the pancreatic duct. The endoscope was repositioned. Common bile duct was deeply cannulated with sphincterotome and 0.035 inch guidewire. Biliary tree was filled with contrast. At least 2 filling defects were noted in the mid and distal common bile duct consistent with stones with 1 of these around 1 cm diameter and the other smaller size. Right and left intrahepatic systems appeared normal. Common bile duct and common hepatic duct were moderately dilated to over 12 mm diameter maximally. Cystic duct was patent partially filling the gallbladder. Common bile duct sphincterotomy was performed over the guidewire to over 1 cm diameter. No significant bleeding was noted from the sphincterotomy site. The sphincterotome was removed and then occlusion balloon advanced over the guidewire into the proximal common hepatic duct. This was dragged distally into the duodenum with 4 separate passes made. Both stones passed into the duodenum and a large amount of brownish colored sludge with some purulence. Occlusion cholangiogram was obtained afterwards with no residual filling defects seen. There was excellent drainage through the sphincterotomy opening. Impression: #1 choledocholithiasis-status post endoscopic removal as above #2 dilated biliary tree related to #1 #3 cholelithiasis #4 normal pancreatogram Recommendations: Cholecystectomy as planned. Anesthesia: MAC Surgeon / Physician: Sunny Issa Estimated blood loss: minimal Specimens: none sent Condition: stable Disposition: post procedure unit Results - Labs CBC & BMP: 03/29/17 04:59 03/29/17 04:59 Discharge Plan - Discharge Medications No Action metFORMIN [Glucophage] 1 tablet PO BID Aspirin [Ecotrin] 81 mg PO DAILY Sitagliptin Phosphate [Januvia] 1 tablet PO DAILY Ascorbic Acid [Vitamin C] 1 tablet PO DAILY Multivitamin [Multivitamins] 1 tablet PO DAILY [place]-3 Fatty Acids [Fish Oil Concentrate] 1 tablet PO DAILY Folic Acid Tab 1 tablet PO DAILY Ferrous Sulfate 1 tablet PO DAILY Pantoprazole Tab [Protonix Tab] 40 mg PO DAILY Glimepiride 4 mg PO DAILY Atenolol 25 mg PO DAILY Allopurinol 100 mg PO DAILY Losartan Potassium [Cozaar] 100 mg PO DAILY Atorvastatin [Lipitor] 20 mg PO DAILY - Follow Up or Referral - Forms/Instructions
--- NOTE | 2017-03-29 15:52 | Fluoroscopy Report ---
[place] ERCP w sphincterotomy Indication: Gallstone pancreatitis with obstructive jaundice. ERCP: Fluoroscopy time 6 minutes 16 seconds with 10 captured images. 12 cc contrast injection. Sequential images show no biliary duct dilatation. On the first set of images, a filling defect in the CBD likely represents a stone. Balloon sweep of the biliary collecting system isn't performed and final image shows no residual filling defect. Contrast does extend into the gallbladder. Impression: No residual filling defects after balloon sweep of the CBD. PROCEDURE INTERPRETED AT [facility] DEPARTMENT OF RADIOLOGY Final Report Signed by: Augusto Mosher M.D.
[2017-03-29] MEDS: sitaGLIPtin 25 MG TABLET PO SCH (16:53)
[2017-03-29] MEDS: ALLOPURINOL 100 MG TABLET PO SCH (16:53)
[2017-03-29] MEDS: PANTOPRAZOLE 40 MG TABLET PO SCH (16:53)
[2017-03-29] MEDS: GLIMEPIRIDE 4 MG TABLET PO SCH (16:53)
[2017-03-29] MEDS: ASPIRIN EC 81 MG TABLET PO SCH (16:53)
[2017-03-29] MEDS: MORPHINE 2 MG/1 ML SYRINGE IV PRN (18:44)
[2017-03-30] MEDS: INSULIN REGULAR 100 UNIT/ML SUBCUT SCH ×4 (00:11→18:24)
[2017-03-30] MEDS: SODIUM CHLORIDE 0.9% 1,000 ML IV SCH ×7 (04:36→22:15)
[2017-03-30] MEDS: MORPHINE 2 MG/1 ML SYRINGE IV PRN ×3 (04:38→20:00)
[2017-03-30] MEDS: PIPERACILLIN/TAZOBACTAM 3,375 MG in SODIUM CHLORIDE 0.9% 100 ML IV SCH ×3 (04:49→20:52)
[2017-03-30 05:06] LABS: Basophils % 0.3 % (0.0-0.8); Eosinophils # 0.1 10*3/uL (0.0-0.87); Eosinophils % 1.6 % (0.00-10.9); Hematocrit 39.7 VOL% (42.0-52.0); Hemoglobin 13.2 GM/DL (14.0-18.0); Immature Granulocytes % 0.5 %; Immature Granulocytes Absolute 0.04 #; Lymphocytes # 0.5 10*3/uL (1.4-4.0); Lymphocytes % 5.9 % (21.2-54.2); Mean Corpuscular HGB Conc 33.2 GM/DL (32-36); Mean Corpuscular Hemoglobin 29 PG (27-34); Mean Corpuscular Volume 87.4 FL (87-102); Mean Platelet Volume 11.5 FL (9.6-12.0); Monocytes # 0.6 10*3/uL (0.11-0.8); Neutrophils # 6.7 10*3/uL (1.4-7.4); Neutrophils % 83.7 % (38.7-73.9); Red Blood Count 4.54 MC/CUMM (3.8-5.5); Red Cell Distribution Width 13.9 % (9.3-17.3)
[2017-03-30 05:10] LABS: Platelet Count 94 T/CUMM (130-400)
[2017-03-30 05:36] LABS: Albumin 2.7 G/DL (3.4-5.0); Bilirubin,Total 4.2 MG/DL (0.2-1.0); Calcium 8.1 MG/DL (8.5-10.1); Osmolality,Calculated 299.8 MOS/KG (273-304); Potassium 4.1 MMOL/L (3.5-5.1); Total Protein 5.5 G/DL (6.4-8.3)
[2017-03-30 05:52] LABS: Microcytosis Slight; Platelet Estimate Decreased
[2017-03-30] MEDS: ATENOLOL 50 MG TABLET PO SCH ×2 (07:46→10:35)
[2017-03-30] MEDS ORDERED: TISSUE ADHESIVE 1 EACH APPLICATOR TOP ONE (08:54)
[2017-03-30] MEDS ORDERED: BUPIVACAINE MPF 0.25% /EPI 30 ML VIAL ONE (08:56)
[2017-03-30] MEDS: ASPIRIN EC 81 MG TABLET PO SCH (10:34)
[2017-03-30] MEDS: GLIMEPIRIDE 4 MG TABLET PO SCH (10:34)
[2017-03-30] MEDS: sitaGLIPtin 25 MG TABLET PO SCH (10:34)
[2017-03-30] MEDS: PANTOPRAZOLE 40 MG TABLET PO SCH (10:34)
[2017-03-30] MEDS: ALLOPURINOL 100 MG TABLET PO SCH (10:35)
[2017-03-30] MEDS ORDERED: ACETAMINOPHEN 1,000 MG/100 ML VIAL IV ONE (10:48)
[2017-03-30] MEDS ORDERED: DESFLURANE 1 UNIT/15 MINUTE INH ONE (10:48)
[2017-03-30] MEDS ORDERED: fentaNYL 100 MCG/2 ML VIAL ONE (10:48)
[2017-03-30] MEDS ORDERED: MIDAZOLAM 2 MG/2 ML VIAL ONE (10:48)
--- NOTE | 2017-03-30 12:26 | Anesthesia Post-Op ---
Anesthesia Post OP - Post Ansesthetic Evaluation Patient seen in post op: Yes Resp: within normal limits CV: within normal limits Mental: within normal limits Temp: within normal limits [id number]: within normal limits Nausea and Vomiting: within normal limits Pain: within normal limits
--- NOTE | 2017-03-30 12:29 | Gastrointestinal Progress Note ---
Assessment and Plan (1) Gallstone pancreatitis Status: Acute Assessment and plan: 03/30-immediate postop laparoscopic cholecystectomy. Operative report and cholangiogram pending at present time. LFTs slowly trending downward. Plan an addendum to followed by Dr. Issa. 03/28-sudden onset of abdominal pain severe in nature, with findings on admission of elevated LFTs, elevated lipase. CT and abdominal ultrasound results noted to show cholelithiasis with dilated common bile duct at 9.2 mm, possible acute cholecystitis. Continue n.p.o., IV fluids and analgesics as needed. Tentative ERCP tomorrow. Plan an addendum to followed by Dr. Issa Current Visit: Yes Gastroenterology - PN: Subj Interval history: CC: Gallstone pancreatitis Patient is seen immediately post recovery following laparoscopic cholecystectomy today. Patient is still rather groggy under the effects of anesthesia however states he is having no abdominal pain, just complaints of right lower back pain that he feels like his muscle related. Abdomen is soft, nontender. He is noted to have LU [address] Operative reports and intraoperative cholangiogram is still pending at this time. His bilirubin is trended down to 4.2 and transaminases are trending downwards as well. Lipase is 1459 today. WBCs are down to 8000. ROS: Denies shortness of breath or chest pain Exam (Progress Note) - Constitutional Vitals: Period Temp Pulse Resp BP Sys/Lantigua Pulse Ox Last 24 Hr 97 F-98.7 F 50-89 16-20 107-165/53-74 92-96 General appearance: normal weight, no acute distress - Head Head exam: Present: normal inspection, normocephalic - Eye Eye exam: Present: other (Lids and conjunctivae unremarked). Absent: scleral icterus - ENT ENT exam: Present: normal exam, normal oropharynx - Neck Neck exam: Present: normal inspection - Respiratory Respiratory exam: Present: clear to auscultation bilaterally. Absent: rales, rhonchi, wheezes - Cardiovascular Cardiovascular exam: Present: regular rate and rhythm. Absent: diastolic murmur , JVD, systolic murmur - GI/Abdominal GI/Abdominal exam: Present: normal bowel sounds, soft. Absent: ascites, distended, mass, organomegaly, tenderness - Extremities Exam Extremities exam: Present: normal inspection, full ROM - Back Exam Back exam: Present: normal inspection - Neurological Exam Neurological exam: Present: alert, oriented X3 - Psychiatric Psychiatric exam: Present: normal affect, normal mood - Skin Skin exam: Present: normal color, warm, dry Results - Labs CBC & BMP: 03/30/17 04:28 03/30/17 04:28 Lab Results: I have reviewed the past 24 hour labs
--- NOTE | 2017-03-30 13:10 | Operative Note ---
Date of procedure: 03/30/17 Pre-op diagnosis: Cholecystitis with choledocholithiasis Post-op diagnosis: same Procedure: Preoperative diagnosis Cholecystitis with choledocholithiasis status post ERCP and sphincterotomy Postoperative diagnosis Same Procedures performed Laparoscopic cholecystectomy Findings Acute and chronic cholecystitis was seen. The critical view of safety was obtained prior to placing clips on the cystic duct and cystic artery. Complications None apparent Specimen Gallbladder Anesthesia GETA Blood loss 5 mL Indications The patient was admitted with cholecystitis and choledocholithiasis. I recommended laparoscopic cholecystectomy after ERCP was done to clear his duct. The risks, benefits, and alternatives of the operation were discussed with the patient in detail, and the expected outcomes were reviewed. In particular, the risk of bowel injury, liver injury, bile duct leak and bile duct injury, as well as pancreatitis and retained or drop stones were discussed in detail. All the patient's questions were answered. She like to proceed with the operation. Description of procedure The patient was taken to the operating room and transferred to the operating table in the supine position. Pressure points were padded and SCDs were placed to bilateral lower extremities. General endotracheal anesthesia was administered. The abdomen was prepped chlorhexidine and draped sterilely. Preoperative antibiotics were administered, a timeout was performed. The abdomen was entered in the midepigastric region because of the patient's prior abdominal surgery. Direct cutdown technique was performed. A scalpel was used after local anesthetic was administered and a 11 mm trochars placed directly into the peritoneal cavity. The abdomen was insufflated to 15 mmHg with an initial insufflation pressure of 2 mmHg. A 11 mm trocar was placed blindly. Diagnostic laparoscopy was performed. There is no evidence of Veress needle or trocar injury. The patient was placed in reverse Trendelenburg and left side rolled down position. Under direct visualization, and after local anesthetic was administered, an additional supraumbilical 5 mm trocar and 2 right subcostal 5 mm trochars were placed. The gallbladder was grasped at the fundus and infundibulum. The cystic plate peritoneum was dissected into the critical view of safety was obtained. The cystic duct and cystic artery were clipped twice initially and once laterally and divided laparoscopically with scissors between clips. Gallbladder was removed from the gallbladder fossa using hook electrocautery. The gallbladder was placed in a Endo Catch retrieval bag through the 11 mm trocar and removed through the trocar with no significant fascial extension of the incision. The gallbladder fossa was suction irrigated until the effluent was clear. The fascial incision was closed at the mid- epigastric region with a figure of eight 0-vicryl suture. The CO2 was released from the abdomen and the trochars were removed. The skin incisions were closed with 4-0 Monocryl subcuticular suture and sterile skin glue. The patient was awakened from anesthesia and transferred to recovery. Postoperative plan Advance diet as tolerated Pain control Anesthesia: JULIANNEA, local Surgeon / Physician: Obi Gilliland Estimated blood loss: minimal Specimens: other (gallbladder) Condition: stable Disposition: PACU Results - Labs CBC & BMP: 03/30/17 04:28 03/30/17 04:28 Discharge Plan - Discharge Medications No Action metFORMIN [Glucophage] 1 tablet PO BID Aspirin [Ecotrin] 81 mg PO DAILY Sitagliptin Phosphate [Januvia] 1 tablet PO DAILY Ascorbic Acid [Vitamin C] 1 tablet PO DAILY Multivitamin [Multivitamins] 1 tablet PO DAILY [place]-3 Fatty Acids [Fish Oil Concentrate] 1 tablet PO DAILY Folic Acid Tab 1 tablet PO DAILY Ferrous Sulfate 1 tablet PO DAILY Pantoprazole Tab [Protonix Tab] 40 mg PO DAILY Glimepiride 4 mg PO DAILY Atenolol 25 mg PO DAILY Allopurinol 100 mg PO DAILY Losartan Potassium [Cozaar] 100 mg PO DAILY Atorvastatin [Lipitor] 20 mg PO DAILY - Follow Up or Referral - Forms/Instructions
--- NOTE | 2017-03-30 14:47 | Cardiology Progress Note ---
Ella Wallace April RN, am scribing for, and in the presence of, Shirley Rowe DO 14 :46. Assessment and Plan (1) Preoperative cardiovascular examination Status: Acute Current Visit: Yes (2) CAD (coronary artery disease) Status: Chronic Current Visit: Yes Qualifiers: Coronary Disease-Associated Artery/Lesion type: bypass graft [place] vs. 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 Culp had laparoscopic cholecystectomy performed today by Dr. Gilliland. He is seen resting in bed in no acute distress. Oxygen use via nasal cannula. He denies having any chest pain, shortness of breath, palpitations, or dizziness. He does complain of back pain which he thinks is muscle related. He says they just gave him a pain pill for that. Abdominal dressing noted to be dry and intact with LU drain. His heart rates have been in the 50s since surgery. Blood pressure is stable 129/69. Saw the patient postoperatively he has no specific complaints he states he is hurting in his back but he thinks it is the way he is lying in bed. The patient denies any chest pain. He denies dyspnea however he is tachypneic. I encouraged him to use his incentive spirometer. At this time I have nothing further to add we will sign off in anticipation of discharge relatively soon if there are any other cardiovascular issues arise please do not hesitate to call, thanks. Exam (Progress Note) - Constitutional Vitals: Period Temp Pulse Resp BP Sys/Lantigua Pulse Ox Last 24 Hr 97 F-98.7 F 50-89 16-20 117-165/56-74 92-96 General appearance: no acute distress, morbidly obese - Head Head exam: Absent: abrasion, hematoma - Eye Eye exam: Absent: periorbital swelling, laceration to eyelids - Neck Neck exam: Absent: tenderness - Respiratory Respiratory exam: Present: clear to auscultation bilaterally, other (Oxygen via nasal cannula). Absent: accessory muscle use, chest wall tenderness - Cardiovascular Cardiovascular exam: Present: regular rate and rhythm - GI/Abdominal GI/Abdominal exam: Present: normal bowel sounds, tenderness, soft, other ( Abdominal dressing dry and intact, LU drain). Absent: distended - Extremities Exam Extremities exam: Present: other (Pulses present to all extremities). Absent: edema - Neurological Exam Neurological exam: Present: alert, oriented X3 - Psychiatric Psychiatric exam: Present: normal affect, normal mood - Skin Skin exam: Present: warm, dry Result/EKG - Labs CBC & BMP: 03/30/17 04:28 03/30/17 04:28 Lab Results: I have reviewed the past 24 hour labs Labs: Laboratory Results - last 24 hr 03/29/17 03/30/17 03/30/17 17:21 00:01 04:28 WBC 8.0 D RBC 4.54 Hgb 13.2 L Hct 39.7 L MCV 87.4 MCH 29 MCHC 33.2 RDW 13.9 Plt Count 94 L MPV 11.5 Neut % (Auto) 83.7 H Lymph % (Auto) 5.9 L [place] % (Auto) 8.0 Eos % (Auto) 1.6 Baso % (Auto) 0.3 Neut # (Auto) 6.7 Lymph # (Auto) 0.5 L [place] # (Auto) 0.6 Eos # (Auto) 0.1 Baso # (Auto) 0.0 Immature Gran % 0.5 Nucleated RBC % 0.0 Immature Gran # 0.04 Nucleated RBCs # 0.00 Platelet Estimate Decreased Microcytosis Slight Sodium Potassium Chloride Carbon Dioxide Anion Gap BUN Creatinine GFR Calculation BUN/Creatinine Ratio Glucose POC Glucose 177 H 200 H Calculated Osmolality Calcium Total Bilirubin AST ALT Alkaline Phosphatase Total Protein Albumin Globulin Albumin/Globulin Ratio Lipase 03/30/17 03/30/17 04:28 05:34 WBC RBC Hgb Hct MCV MCH MCHC RDW Plt Count MPV Neut % (Auto) Lymph % (Auto) [place] % (Auto) Eos % (Auto) Baso % (Auto) Neut # (Auto) Lymph # (Auto) [place] # (Auto) Eos # (Auto) Baso # (Auto) Immature Gran % Nucleated RBC % Immature Gran # Nucleated RBCs # Platelet Estimate Microcytosis Sodium 144 Potassium 4.1 Chloride 112 H Carbon Dioxide 25 Anion Gap 11.1 BUN 42 H Creatinine 1.90 H GFR Calculation 47 BUN/Creatinine Ratio 22.00 H Glucose 158 H POC Glucose 155 H Calculated Osmolality 299.8 Calcium 8.1 L Total Bilirubin 4.20 H AST 77 H ALT 146 H Alkaline Phosphatase 217 H Total Protein 5.5 L Albumin 2.7 L Globulin 2.8 Albumin/Globulin Ratio 0.9 L Lipase 1459.0 H D Quality Measures - VTE Contraindication to Pharmacological VTE Prophylaxis: Thrombocytopenia I, Shirley Rowe, DO, personally performed the services described in this documentation, ascribed by Mahnaz Jaramillo RN in my presence, and it is both accurate and complete 447 .
[2017-03-31] MEDS: INSULIN REGULAR 100 UNIT/ML SUBCUT SCH ×2 (00:12→06:19)
[2017-03-31] MEDS: MORPHINE 2 MG/1 ML SYRINGE IV PRN ×2 (00:21→04:42)
[2017-03-31] MEDS: SODIUM CHLORIDE 0.9% 1,000 ML IV SCH (03:00)
[2017-03-31] MEDS: PIPERACILLIN/TAZOBACTAM 3,375 MG in SODIUM CHLORIDE 0.9% 100 ML IV SCH (04:41)
[2017-03-31 04:42] LABS: Basophils % 0.1 % (0.0-0.8); Eosinophils # 0.1 10*3/uL (0.0-0.87); Eosinophils % 1.2 % (0.00-10.9); Hematocrit 39.3 VOL% (42.0-52.0); Hemoglobin 12.7 GM/DL (14.0-18.0); Immature Granulocytes % 0.4 %; Immature Granulocytes Absolute 0.03 #; Lymphocytes # 0.6 10*3/uL (1.4-4.0); Mean Corpuscular HGB Conc 32.3 GM/DL (32-36); Mean Corpuscular Hemoglobin 29 PG (27-34); Mean Corpuscular Volume 90.1 FL (87-102); Mean Platelet Volume 11.8 FL (9.6-12.0); Monocytes # 0.7 10*3/uL (0.11-0.8); Monocytes % 8.6 % (1.7-12.7); Neutrophils # 7.1 10*3/uL (1.4-7.4); Neutrophils % 82.7 % (38.7-73.9); Platelet Count 98 T/CUMM (130-400); Red Blood Count 4.36 MC/CUMM (3.8-5.5); Red Cell Distribution Width 14.1 % (9.3-17.3); White Blood Count 8.6 T/CUMM (4-12)
[2017-03-31 05:17] LABS: Calcium 8.1 MG/DL (8.5-10.1); Osmolality,Calculated 299.8 MOS/KG (273-304); Potassium 4.2 MMOL/L (3.5-5.1)
[2017-03-31 07:12] VITALS: BP 144/67
[2017-03-31] MEDS ORDERED: HEPARIN 5,000 UNIT/1 ML VIAL SUBCUT SCH (07:30)
[2017-03-31] MEDS: GLIMEPIRIDE 4 MG TABLET PO SCH (08:30)
[2017-03-31] MEDS: ALLOPURINOL 100 MG TABLET PO SCH (08:30)
[2017-03-31] MEDS: PANTOPRAZOLE 40 MG TABLET PO SCH (08:31)
[2017-03-31] MEDS: sitaGLIPtin 25 MG TABLET PO SCH (08:31)
[2017-03-31] MEDS: ATENOLOL 50 MG TABLET PO SCH (08:32)
[2017-03-31] MEDS: ASPIRIN EC 81 MG TABLET PO SCH (08:32)
--- NOTE | 2017-03-31 10:11 | Discharge Summary ---
Hospital Course - Hospital Course Hospital Course: Patient is a 76-year-old male with past medical history of bladder cancer status post cystectomy with urostomy placement, left nephrectomy, hypertension and diabetes mellitus who presented to the emergency department with gallstone pancreatitis. He was initially treated for pancreatitis with aggressive IV hydration, analgesics and bowel rest with the addition of IV antibiotics as he had a sepsis picture. Requested cardiology consultation for preop risk assessment considering his remote cardiac history. Gastroenterology consultation was performed as well as ERCP with CBD sphincterotomy and common bile duct stone and sludge removal with balloon. He subsequently underwent laparoscopic cholecystectomy -both procedures without complication. He was ultimately tolerating activity, oral intake, and voiding with bowel movements without difficulty. Patient's renal function was noted to be slightly bumped upon discharge. Again he has a single kidney with known CKD, but the level is unclear. The medications were reviewed for renal dosing. We hold his metformin until follow- up with his PCP and/or follow with Dr. Gilliland to confirm return to baseline of his renal function. Additionally, he was noted to have MRSA found in his urine and was discharged on appropriate antibiotics based on the sensitivity. He was also noted to have E. coli in his blood cultures and discharged on 2 weeks therapy of oral antibiotics based on sensitivities under the direction of Dr. iGlliland. Patient was discharged home in good condition. Diagnosis - Discharge Diagnosis (1) Gallstone pancreatitis Status: Acute (2) Atelectasis of both lungs Status: Resolved (3) Urinary tract bacterial infections Status: Acute (4) Renal insufficiency Status: Chronic (5) Diabetes mellitus type 2 in obese Status: Chronic (6) Co-morbid condition Status: Chronic (7) Prophylactic measure Status: Acute (8) Cholecystitis, acute with cholelithiasis Status: Acute Specialty Discharge - Follow Up or Referrals Follow up with: Obi Gilliland MD [Physician] - 04/06/17 9:00 am (follow up 1 week with CBC CMP lab work to be drawn at [facility] on april 06 8:00) Discharge Plan - Discharge Data Disposition: Disch To Home/Self Care Condition at Discharge: Stable Discharge Diet: diabetic diet Activity: no lifting (> 10lb) Hygiene: may shower Driving: not until seen by doctor Contact your physician if you experience:: fever over 101, Difficulty voiding ( dereased urine output, flank pain, pain with urination), Redness or swelling, Nausea/Vomiting, Shortness of breath, Bleeding, pain uncontrolled by pain medications Wound / Dressing Care Instructions: Keep wounds clean, dry and covered. Do not soak or aggressively rub wound. - Discharge Medications New Amoxicillin/Clav Tab [Augmentin Tab] 875 mg PO Q12H 14 Days Nitrofurantoin Macro/[place] [Macrobid] 100 mg PO BID #14 capsule HYDROcodone/ACETAMIN 7.5-325 [[place] 7.5-325] 1 tablet PO Q4H PRN #30 tablet PRN Reason: Pain Moderate To Severe (4-10) Continue Aspirin [Ecotrin] 81 mg PO DAILY Sitagliptin Phosphate [Januvia] 1 tablet PO DAILY Ascorbic Acid [Vitamin C] 1 tablet PO DAILY Multivitamin [Multivitamins] 1 tablet PO DAILY [place]-3 Fatty Acids [Fish Oil Concentrate] 1 tablet PO DAILY Folic Acid Tab 1 tablet PO DAILY Ferrous Sulfate 1 tablet PO DAILY Pantoprazole Tab [Protonix Tab] 40 mg PO DAILY Glimepiride 4 mg PO DAILY Atenolol 25 mg PO DAILY Allopurinol 100 mg PO DAILY Losartan Potassium [Cozaar] 100 mg PO DAILY Atorvastatin [Lipitor] 20 mg PO DAILY Discontinued metFORMIN [Glucophage] 1 tablet PO BID - Follow Up or Referral Follow Up: Obi Gilliland MD [Physician] - 04/06/17 9:00 am (follow up 1 week with CBC CMP lab work to be drawn at [facility] on april 06 8:00) - Forms/Instructions Instructions: Pancreatitis (DC), Laparoscopic Cholecystectomy (DC), Eliecer J- P Drain Care Instructions, Urinary Tract Infection in Men (DC) Additional Discharge Instructions: Complete all antibiotics as prescribed. Follow up primary care physician in 1-2 weeks. Empty drain daily - keep log of amount of fluid emptied and bring to follow-up appt with Dr. Gilliland. Obtain CBC and CMP prior to appt with Dr. Gilliland on 04/06/2017 Exam - Constitutional Vitals: Period Temp Pulse Resp BP Sys/Lantigua Pulse Ox Last 24 Hr 97.0 F-99.5 F 50-66 16-20 122-153/58-81 91-98 General appearance: no acute distress, morbidly obese - Head Head exam: Present: normocephalic - Eye Eye exam: Absent: conjunctival injection, scleral icterus - Respiratory Respiratory exam: Present: clear to auscultation bilaterally - Cardiovascular Cardiovascular exam: Present: regular rate and rhythm - GI/Abdominal GI/Abdominal exam: Present: normal bowel sounds, tenderness (appropriate p/o tenderness), soft, other (Surgical incisions c/d/i. LU drain with serosanguinous fluid. Drain site without evidence of infection. ). Absent: distended - Extremities Exam Extremities exam: Absent: calf tenderness, edema - Neurological Exam Neurological exam: Present: alert, oriented X3 - Psychiatric Psychiatric exam: Present: normal affect, normal mood - Skin Skin exam: Present: normal color, warm Discharge Results Procedures and tests throughout hospitalization: 1. ERCP with CBD sphincterotomy and CBD stone/sludge removal with balloon 2. Laparoscopic cholecystectomy 3. Urine cultures: MRSA 4. Blood cultures: 2/2 E. coli 5. pathology: Acute on chronic cholecystitis with cholelithiasis Labs on day of discharge: Labs from last 24 hours 03/31/17 03/31/17 03/31/17 07:06 05:52 03:42 WBC RBC Hgb Hct MCV MCH MCHC RDW Plt Count MPV Neut % (Auto) Lymph % (Auto) [place] % (Auto) Eos % (Auto) Baso % (Auto) Neut # (Auto) Lymph # (Auto) [place] # (Auto) Eos # (Auto) Baso # (Auto) Immature Gran % Nucleated RBC % Immature Gran # Nucleated RBCs # Sodium 144 Potassium 4.2 Chloride 112 H Carbon Dioxide 23 Anion Gap 13.2 BUN 43 H Creatinine 2.00 H GFR Calculation 44 BUN/Creatinine Ratio 21.00 H Glucose 151 H POC Glucose 144 H 138 H Calculated Osmolality 299.8 Calcium 8.1 L 03/31/17 03/31/17 03/30/17 03:42 00:04 20:22 WBC 8.6 RBC 4.36 Hgb 12.7 L Hct 39.3 L MCV 90.1 MCH 29 MCHC 32.3 RDW 14.1 Plt Count 98 L MPV 11.8 Neut % (Auto) 82.7 H Lymph % (Auto) 7.0 L [place] % (Auto) 8.6 Eos % (Auto) 1.2 Baso % (Auto) 0.1 Neut # (Auto) 7.1 Lymph # (Auto) 0.6 L [place] # (Auto) 0.7 Eos # (Auto) 0.1 Baso # (Auto) 0.0 Immature Gran % 0.4 Nucleated RBC % 0.0 Immature Gran # 0.03 Nucleated RBCs # 0.00 Sodium Potassium Chloride Carbon Dioxide Anion Gap BUN Creatinine GFR Calculation BUN/Creatinine Ratio Glucose POC Glucose 144 H 195 H Calculated Osmolality Calcium 03/30/17 18:22 WBC RBC Hgb Hct MCV MCH MCHC RDW Plt Count MPV Neut % (Auto) Lymph % (Auto) [place] % (Auto) Eos % (Auto) Baso % (Auto) Neut # (Auto) Lymph # (Auto) [place] # (Auto) Eos # (Auto) Baso # (Auto) Immature Gran % Nucleated RBC % Immature Gran # Nucleated RBCs # Sodium Potassium Chloride Carbon Dioxide Anion Gap BUN Creatinine GFR Calculation BUN/Creatinine Ratio Glucose POC Glucose 414 H Calculated Osmolality Calcium - Imaging and Cardiology Procedure: Chest x-ray: image reviewed by me, report reviewed by me, CT Abdomen and Pelvis: image reviewed by me, report reviewed by me, Ultrasound: report reviewed by me DS: Provider Date of admission: 03/28/17 13:46 Primary care physician: . No PCP Attending physician on admission: Obi Gilliland MD Consults: 03/28/17 15:19 Consult to Physician [CONS] Routine Comment: gallstone pancreatitis Consulting Provider: Sunny Issa Consulting Provider Notified: Yes When should Consulting Provider be notified: Now Person Notified: collin called Date Notified: 03/28/17 Time Notified: 15:24 03/28/17 15:31 Consult to Pharmacy [CONS] Routine Reason for Pharmacy Consult: Adjust Meds Renal Funct 03/28/17 17:02 Consult to Physician [CONS] Routine Comment: preop risk assessment - pt of dr. menon Consulting Provider: Garrick Kaba Consulting Provider Notified: Yes When should Consulting Provider be notified: Now Person Notified: migdalia called Date Notified: 03/29/17 Time Notified: 08:19 Discharging clinician: Lucie Talamantes PA-C
--- NOTE | 2017-03-31 10:22 | Pathology Report from [facility] ---
ACCESSION # : [id number] PATIENT NAME : Musa Culp. ORDERING DR : Obi Gilliland MD CLINICAL HX: Gallstones, pancreatitis; cholelithias POST-OP DX: Same SPECIMEN INFO: Gallbladder GROSS DESCRIPTION: Specimen received in formalin labeled "MUSA CULP" is a focally open gallbladder measures 14.4 x up to 5 cm. The serosa is fatty, focally ulcerated, and hemorrhagic. Gallbladder wall has a thickness of 0.3 cm. The mucosa is slightly granular hyperemic gold bee. The lumen contains hemorrhagic gold bile. Small yellow stones are identified. [employer]age Administrator sections are submitted in one cassette. DIAGNOSIS FOR MUSA CULP: GALLBLADDER, CHOLECYSTECTOMY: Marked acute and chronic cholecystitis. Cholelithiasis. SERVICE DATE: 03/30/2017 REPORT DATE: 03/31/2017 PATHOLOGIST: Escobar Matias M.D. [facility]
== END 2017-03-31 11:59 | disposition home or self-care (01) | DRG 418 ==
LOC: N.ED 09:40 → N.EDINP 13:46 → N.3E 14:39
PROVIDERS: ADMIT Surgery; ATTEND Surgery
PROC: ERCPWSP (ICD-10-PCS; 2017-03-29 11:05)
PROC: LAPCHOL (2017-03-30 09:05)

== ENCOUNTER 2017-04-21 13:10 | Inpatient (IN) ==
[2017-04-21] MEDS ORDERED: SODIUM CHLORIDE 0.9% 1,000 ML IV STA (14:34)
--- NOTE | 2017-04-21 14:43 | Emergency Department Note ---
Arrival - Arrival Chief Complaint: Abdominal / Flank Pain Stated Complaint: recent surgery/can't eat, weak ED Nursing Triage Note: reports had gb surgery on 03/28/17 and since then has been weaker and not feeling himself. pt is having trouble eating. family says that health has deterorated since surgery. still having abd pain. was told by dr gilliland office to come to er. Mode of Arrival: Wheelchair Limitations: No Limitations Source: Patient, Family Time Seen by Provider: 04/21/17 14:17 - History of Present Illness HPI Narrative: The patient complains of weakness and decreased appetite and general deterioration since having laparoscopic cholecystectomy on the second of this month. His family has noticed dark urine and a 20 pound weight loss since the surgery. They think he may be septic. The patient is not really complaining of any abdominal pain, just weakness and decreased appetite/intake. Initially, after the surgery, he had difficulty swallowing, however, this has resolved. At this point it seems to be only his appetite that is keeping him from eating. He denies any fever, cough, rhinorrhea, chest pain or shortness of breath, although he does appear to be breathing slightly heavily. He has a history of left nephrectomy. He also had his bladder removed in 2012 for bladder cancer. The patient is normally very active. Walks every day, lifts weights. Allergies/Adverse Reactions: Allergies Allergy/AdvReac Type Severity Reaction Status Date / Time No Known Allergies Allergy Verified 07/07/16 06:28 Home Medications: Home Medications Medication Instructions Recorded Confirmed Type Ascorbic Acid [Vitamin C] 1 tablet PO DAILY 06/28/16 04/21/17 History [place]-3 Fatty Acids [Fish Oil 1 tablet PO DAILY 06/28/16 04/21/17 History Concentrate] Sitagliptin Phosphate [Januvia] 1 tablet PO DAILY 06/28/16 04/21/17 History Allopurinol 100 mg PO DAILY 07/07/16 04/21/17 History Folic Acid Tab 1 tablet PO DAILY 07/07/16 04/21/17 History Glimepiride 4 mg PO DAILY 07/07/16 04/21/17 History Pantoprazole Tab [Protonix Tab] 40 mg PO DAILY 07/07/16 04/21/17 History Atorvastatin [Lipitor] 20 mg PO BEDTIME 03/28/17 04/21/17 History Losartan Potassium [Cozaar] 100 mg PO DAILY 03/28/17 04/21/17 History Aspirin [Aspirin EC] 81 mg PO DAILY 04/21/17 04/21/17 History Atenolol 12.5 mg PO DAILY 04/21/17 04/21/17 History Cholecalciferol [Vitamin D3] 1,000 unit PO DAILY 04/21/17 04/21/17 History Cyanocobalamin (Vitamin B-12) 1,000 mcg PO DAILY 04/21/17 04/21/17 History [Vitamin B-12] Cyproheptadine Tab [Periactin Tab] 4 mg PO TID 04/21/17 04/21/17 History Metformin HCl [Metformin HCl ER] 500 mg PO BID 04/21/17 04/21/17 History Thiamine Mononitrate [Vitamin B-1] 100 mg PO DAILY 04/21/17 04/21/17 History traZODone [Desyrel] 50 mg PO BEDTIME PRN 04/21/17 04/21/17 History Review of System - Review of System 12 point system: reviewed and no additional remarkable complaints except as stated - Review of System Constitutional: Present: weakness, weight loss (20 pounds this month). Absent: diaphoresis, fever, night sweats Head/Ears/Nose/Throat: Absent: nasal drainage, sore throat Respiratory: Absent: cough, respiratory distress, wheezing Cardiovascular: Absent: chest pain, palpitations, edema Gastrointestinal: Absent: abdominal pain, nausea, vomiting, diarrhea, constipation Genitourinary male: Absent: dysuria, discharge Musculoskeletal: Absent: back pain Neurological: Present: weakness (Generalized). Absent: headache, numbness, paresthesias Medical,Surgical,& Family Hx - Medical History Cardio: History of: CAD (No previous AR and EF has been preserved. CABG 2010- Bernabe), Hypertension No history of: CHF Neurology: No history of: Cerebrovascular Accident, Seizures, TIA HEENT: History of: Eye Problem (GLASSES) Endocrine: History of: Diabetes Mellitus (NIDDM) No history of: Thyroid Disorder Respiratory: No history of: Asthma, COPD Renal: History of: Renal Problems (Left nephrectomy) Genitourinary: History of: Bladder Problem (CANCER), Prostate Problems (CANCER) Gastrointestinal: No history of: Bowel Obstruction, Pancreatitis Hematology: No history of: Bleeding Problems, Clotting Problems Reproductive: Reports: Reproductive Problems (PENILE PROSTHESIS) Other: History of: Cancer (SKIN), Skin Problems (CANCER) - Surgical History Cardiac Surgeries: Sugical HX of: Cardiac Surgery (CABGX3 DR HER 2010) Thoracic Surgeries: Surgical HX of;: Nephrectomy (LEFT) Patient denies;: Organ Transplant Abdominal Surgeries: Surgical HX of: Colonoscopy, EGD Reproductive Surgeries: Surgical HX of;: Genitourinary Surgery (Cystectomy with urostomy; penile implant), Prostate Surgery (REMOVAL) - Family History Family History: Reports;: Family Diabetes (MOM), Family Stroke (DAD) - Social History Smoking Status: Never smoker Exam Physical Examination: GENERAL: Alert. No acute distress. HEENT: Normocephalic and atraumatic. There is no nasal drainage. No pharyngeal erythema or exudate. Mucous membranes dry. NECK: Normal inspection. Supple. No lymphadenopathy or meningismus. LUNGS: No respiratory distress. Clear to auscultation bilaterally, no wheezes, rales or rhonchi. HEART: Regular rate and rhythm. ABDOMEN: Soft, nontender and nondistended with normoactive bowel sounds. Well- healed laparoscopic cholecystectomy scars. No drainage. There is a cystostomy. No drainage or erythema. It is draining mildly dark urine into the bag. : Penis is nontender. There is no discharge, lesions or erythema. No testicular tenderness, swelling. No hernia detected. BACK: Normal inspection. SKIN: Color normal. Warm and dry. EXTREMITIES: Nontender. Normal range of motion. No pedal edema. NEUROLOGICAL/PSYCHIATRIC: Alert and oriented -3 with normal mood and affect. Cranial nerves normal. No motor or sensory deficit. Vital Signs: Vital Signs Temperature 98.3 F 04/21/17 13:47 Pulse Rate 79 04/21/17 13:47 Respiratory Rate 18 04/21/17 13:47 Blood Pressure 101/55 04/21/17 13:47 O2 Sat by Pulse Oximetry 96 04/21/17 13:47 Course - Reevaluation(s) Reevaluation #1: I have discussed patient with Dr. Gilliland who will see him in the ER. Time: 17:15 Reevaluation #2: Dr. Gilliland has seen the patient and is admitting. The patient's exam and workup is fairly benign for abscess. He will have interventional radiology drain the fluid collection tomorrow for further evaluation. Time: 17:28 Results - Labs CBC & BMP: 04/21/17 14:36 04/21/17 14:36 Lab Results: I have reviewed the patients labs Labs: Laboratory Tests 04/21/17 04/21/17 04/21/17 14:36 14:36 14:36 D-Dimer, Quantitative 4.0 BUN 34 H Creatinine 1.50 H AST 49 H ALT 56 Alkaline Phosphatase 223 H Albumin 2.4 L Globulin 4.1 H Amylase 31 Lipase 337.0 Ur Specific [place] 1.015 Urine Leukocytes Trace Urine RBC 9 Urine WBC 17 Urine Bacteria Occasional Urine Yeast (Budding) Moderate Ur Culture Indicated? Results to follow - Impressions CT of the chest shows no evidence of PE. CT of the abdomen shows an 8 cm gallbladder fossa abscess. Disposition Clinical Impression: Abscess, Renal insufficiency, Urinary tract bacterial infections Case discussed with: patient, patient's family Disposition: Still a Patient Condition: Stable Time of Disposition: 17:26
[2017-04-21 14:52] LABS: Apearance,Urine CLOUDY (Clear); Bacteria,Urine Occasional /HPF (Few); Basophils % 0.4 % (0.0-0.8); Bilirubin,Urine Negative (Negative); Blood, Urine Negative (Negative); Eosinophils # 0.3 10*3/uL (0.0-0.87); Eosinophils % 2.5 % (0.00-10.9); Glucose,Urine (UA) Negative (Negative); Hematocrit 38.5 VOL% (42.0-52.0); Hemoglobin 12.7 GM/DL (14.0-18.0); Immature Granulocytes % 0.7 %; Immature Granulocytes Absolute 0.08 #; Ketones,Urine Negative (Negative); Lymphocytes # 0.8 10*3/uL (1.4-4.0); Lymphocytes % 7.5 % (21.2-54.2); Mean Corpuscular Hemoglobin 29 PG (27-34); Mean Corpuscular Volume 86.7 FL (87-102); Mean Platelet Volume 10.1 FL (9.6-12.0); Monocytes % 9.2 % (1.7-12.7); Mucus,Urine Occasional /LPF (Occasional); Neutrophils # 8.7 10*3/uL (1.4-7.4); Neutrophils % 79.7 % (38.7-73.9); Nitrite,Urine Negative (Negative); Platelet Count 248 T/CUMM (130-400); Protein,Urine Negative; RBC,Urine 9 /HPF (0-4); Red Blood Count 4.44 MC/CUMM (3.8-5.5); Red Cell Distribution Width 13.2 % (9.3-17.3); Squamous Epithelial Cell,Urine Occasional /HPF (0-10); Urine Color Yellow (Yellow); Urine Specific Gravity 1.015 (1.001-1.035); WBC,Urine 17 /HPF (0-6); White Blood Count 10.9 T/CUMM (4-12)
--- NOTE | 2017-04-21 14:55 | XRay Report ---
Referring Physician: Sunny Hough Exam: XR chest 1V portable Date: April 21, 2017 at 2:24 PM Reason: Weakness, dyspnea/shortness of breath Comparison: Chest one view portable March 28, 2017 Findings: The cardiac silhouette is upper normal in size, and the patient is status post sternotomy. There is minimal scattered atelectasis within both lower lung zones. No pneumothorax or pleural effusion is identified. No acute osseous process is seen. Impression: 1. Borderline cardiomegaly. 2. Minimal scattered atelectasis within both lower lung zones. PROCEDURE INTERPRETED AT [facility] DEPARTMENT OF RADIOLOGY Final Report Signed by: Dr. Matt Calhoun
[2017-04-21 15:19] LABS: Albumin 2.4 G/DL (3.4-5.0); Bilirubin,Total 0.9 MG/DL (0.2-1.0); Calcium 9.1 MG/DL (8.5-10.1); Magnesium 2.3 MG/DL (1.8-2.4); Osmolality,Calculated 279.8 MOS/KG (273-304); Potassium 4.9 MMOL/L (3.5-5.1); Total Protein 6.5 G/DL (6.4-8.3)
--- NOTE | 2017-04-21 16:55 | CT Report ---
Exam: CT chest with contrast, PE study Date: 04/21/2017 Comparison: 09/22/2009, CT abdomen and pelvis 03/28/2017 Reason: Shortness of breath Technique: Axial images of the chest were obtained after administration of 80 cc of IV Omnipaque 350 intravenous contrast. Coronal reformatted images were also acquired. The study was performed per pulmonary embolism protocol. Total DLP: 2940.30 Findings: The heart is minimally enlarged with cardiac fat pads, prior median sternotomy, and coronary artery calcifications. No evidence of aortic dissection or pulmonary emboli. Persistent enlargement of the right lobe of the thyroid gland with ill-defined hypodensities and multiple calcifications. No significant change in the size the nodes in the chest. Interval cholecystectomy. There is a prominent air-fluid level in this location with air bubbles. The fluid collection measures 84 mm in maximal diameter. Stable 34 mm right adrenal mass. Degenerative changes are noted with bridging osteophytes. There is small pleural effusions with atelectasis/infiltration at the lung bases, especially in the lower lobes and lingula. Impression: No definite pulmonary emboli. Status post median sternotomy with coronary artery calcifications and minimal cardiomegaly. Persistent indeterminate complex mass in the right lobe of the thyroid gland with substernal extension. Very small pleural effusions with atelectasis/infiltration at the lung bases. Interval cholecystectomy with abscess in the gallbladder bed. Stable right adrenal probable adenoma. This CT exam was performed using one or more the following dose reduction techniques: Automated exposure control, adjustment of the MA and/or KV according to patient size, or use of iterative reconstruction technique. PROCEDURE INTERPRETED AT [facility] DEPARTMENT OF RADIOLOGY Final Report Signed by: Dr. Yesika Hayes
--- NOTE | 2017-04-21 17:09 | CT Report ---
History: Abdominal pain and weakness Date: 04/21/2017 Study: CT abdomen and pelvis with IV contrast Comparison exam: March 28, 2017 Technique: Spiral CT sections were obtained from the lung bases to the pubic symphysis following oral contrast and 100 mL Omnipaque [address] exam was performed using one or more of the following dose reduction techniques: Automated exposure control, adjustment of the mA and/or kV according to patient size, or use of iterative reconstruction technique. CT abdomen: There is mild strandy subsegmental atelectasis in the lower lobes. There is trace right-sided pleural effusion. The spleen is mildly enlarged at 69 x 144 x 153 mm as before. There is stable internal heterogeneity of the spleen as on December 10, 2012 study. This includes a 17 mm lobular low-density area which previously measured 20 mm. There is no evidence of pneumoperitoneum. There is a 73 x 82 x 72 mm rounded collection of air and fluid in the gallbladder fossa, presumably gallbladder fossa abscess. The pancreas and left adrenal gland are normal. There is a 3.4 cm right adrenal adenoma as before. The left kidney is surgically absent. The right kidney is unchanged with an occasional tiny cortical cyst. The appendix is directed cephalad with its tip adjacent to the gallbladder fossa abscess region, though the appendix itself is not enlarged. There is no aneurysm of the moderately calcified abdominal aorta. A right lower quadrant urostomy devices in place as before. CT pelvis: The urinary bladder is surgically absent. A penile prosthesis is in place. The osseous structures are unchanged. Impression: 82 mm gallbladder fossa abscess PROCEDURE INTERPRETED AT [facility] DEPARTMENT OF RADIOLOGY Final Report Signed by: Dr. Karey Issa
[2017-04-21] MEDS ORDERED: metroNIDAZOLE INJ 500 MG in PREMIX 1 EACH IV STA (17:32)
[2017-04-21] MEDS ORDERED: CIPROFLOXACIN INJ 400 MG in PREMIX 1 EACH IV STA (17:32)
--- NOTE | 2017-04-21 17:43 | General Surg History&Physical ---
Assessment and Plan (1) Abdominal fluid collection Status: Acute Assessment and plan: This patient has a air-fluid collection in his gallbladder fossa which is concerning for an abscess. He does not have a white count or fever but he is having some significant weight loss and decreased appetite and this is the only thing on his workup that is abnormal. He will be admitted and empirically placed on antibiotics ciprofloxacin and Flagyl and I have spoken to Dr. Issa about drainage of this fluid collection and he agreed to do that tomorrow morning. The patient will be fed tonight and n.p.o. after midnight for the procedure. This was discussed with the patient as well. It is certainly possible that this is also just air from the prior LU drain which was removed recently but until we get a sample of this we will know for sure. Current Visit: Yes History of Present Illness Chief complaint: Failure to thrive decreased appetite weight loss History of present illness: Mr. Culp is a 76 year old male who underwent a laparoscopic cholecystectomy in early March about 3 weeks ago following an ERCP with stone removal for choledocholithiasis with sphincterotomy. He was doing well at home and his drain was removed in clinic about 2 weeks ago. After his drain was removed he developed decreased p.o. intake and started losing weight and feeling generally poor with decreased energy and appetite. He denies any fevers or abdominal pain. He was brought to our attention by family member who called the clinic today stating that he was not able to have the strength to get up and move around and was sent to the ER where he was evaluated with lab work urinalysis and CT scan of the chest and abdomen. He has a 8 1/2 cm fluid collection with intermixed in the gallbladder fossa on the CT scan but his white blood cell count is normal and he is afebrile. His renal function is stable from prior visits. He has evidence of urinary tract infection but he has a colonized ileal conduit and this may or may not represent a true infection. His urine is clear. He has no pulmonary embolism. He feels hungry. He has been passing gas and having bowel movements regularly. Home Medications Medication Instructions Recorded Confirmed Type Ascorbic Acid [Vitamin C] 1 tablet PO DAILY 06/28/16 04/21/17 History [place]-3 Fatty Acids [Fish Oil 1 tablet PO DAILY 06/28/16 04/21/17 History Concentrate] Sitagliptin Phosphate [Januvia] 1 tablet PO DAILY 06/28/16 04/21/17 History Allopurinol 100 mg PO DAILY 07/07/16 04/21/17 History Folic Acid Tab 1 tablet PO DAILY 07/07/16 04/21/17 History Glimepiride 4 mg PO DAILY 07/07/16 04/21/17 History Pantoprazole Tab [Protonix Tab] 40 mg PO DAILY 07/07/16 04/21/17 History Atorvastatin [Lipitor] 20 mg PO BEDTIME 03/28/17 04/21/17 History Losartan Potassium [Cozaar] 100 mg PO DAILY 03/28/17 04/21/17 History Aspirin [Aspirin EC] 81 mg PO DAILY 04/21/17 04/21/17 History Atenolol 12.5 mg PO DAILY 04/21/17 04/21/17 History Cholecalciferol [Vitamin D3] 1,000 unit PO DAILY 04/21/17 04/21/17 History Cyanocobalamin (Vitamin B-12) 1,000 mcg PO DAILY 04/21/17 04/21/17 History [Vitamin B-12] Cyproheptadine Tab [Periactin Tab] 4 mg PO TID 04/21/17 04/21/17 History Metformin HCl [Metformin HCl ER] 500 mg PO BID 04/21/17 04/21/17 History Thiamine Mononitrate [Vitamin B-1] 100 mg PO DAILY 04/21/17 04/21/17 History traZODone [Desyrel] 50 mg PO BEDTIME PRN 04/21/17 04/21/17 History Allergies Allergy/AdvReac Type Severity Reaction Status Date / Time No Known Allergies Allergy Verified 07/07/16 06:28 Medical,Surgical,& Family Hx - Medical History Cardio: History of: CAD (No previous SD and EF has been preserved. CABG 2010- Bernabe), Hypertension No history of: CHF Neurology: No history of: Cerebrovascular Accident, Seizures, TIA HEENT: History of: Eye Problem (GLASSES) Endocrine: History of: Diabetes Mellitus (NIDDM) No history of: Thyroid Disorder Respiratory: No history of: Asthma, COPD Renal: History of: Renal Problems (Left nephrectomy) Genitourinary: History of: Bladder Problem (CANCER), Prostate Problems (CANCER) Gastrointestinal: No history of: Bowel Obstruction, Pancreatitis, GI Problems Hematology: No history of: Bleeding Problems, Clotting Problems Reproductive: Reports: Reproductive Problems (PENILE PROSTHESIS) Other: History of: Cancer (SKIN), Skin Problems (CANCER) - Surgical History Cardiac Surgeries: Sugical HX of: Cardiac Surgery (CABGX3 DR HER 2010) Thoracic Surgeries: Surgical HX of;: Nephrectomy (LEFT) Patient denies;: Organ Transplant Abdominal Surgeries: Surgical HX of: Colonoscopy, EGD Reproductive Surgeries: Surgical HX of;: Genitourinary Surgery (Cystectomy with urostomy; penile implant), Prostate Surgery (REMOVAL) - Family History Family History: Reports;: Family Diabetes (MOM), Family Stroke (DAD) - Social History Smoking Status: Never smoker Exam - Constitutional Vitals: Period Temp Pulse Resp BP Sys/Lantigua Pulse Ox Last 24 Hr 98.3 F 79 18 101/55 96 General appearance: no acute distress, over weight - Head Head exam: Present: normal inspection, normocephalic - Eye Eye exam: Present: EOMI Pupils: Present: AIDEN - ENT ENT exam: Present: normal exam Mouth exam: Present: normal external inspection, normal voice - Neck Neck exam: Present: normal inspection, trachea midline - Respiratory Respiratory exam: Present: clear to auscultation bilaterally. Absent: accessory muscle use, chest wall tenderness - Cardiovascular Cardiovascular exam: Present: RRR. Absent: systolic murmur, tachycardia - GI/Abdominal GI/Abdominal exam: Present: normal bowel sounds, soft, other (Ileal conduit is pink and productive of clear urine). Absent: Caceres's sign, tenderness, rebound - Extremities Exam Extremities exam: Present: normal inspection, normal capillary refill - Back Exam Back exam: Present: normal inspection - Neurological Exam Neurological exam: Present: alert, oriented X3 Speech: Present: normal - Skin Skin exam: Present: normal color, warm - Constitutional Constitutional: Present: as per HPI - EENT Nose, mouth and throat: Present: as per HPI - Cardiovascular Cardiovascular: Present: as per HPI - Respiratory Respiratory: Present: as per HPI - Gastrointestinal Gastrointestinal: Present: as per HPI - Genitourinary Genitourinary: Present: as per HPI - Musculoskeletal Musculoskeletal: Present: as per HPI - Neurological Neurological: Present: as per HPI - Endocrine Endocrine: Present: as per HPI Hematologic/Lymphatic: Present: as per HPI Results - Labs CBC & BMP: 04/21/17 14:36 04/21/17 14:36 - Diagnostic Findings Procedure: CT Abdomen and Pelvis: image reviewed by me, report reviewed by me ( 8.5 cm fluid collection in the gallbladder fossa mixed with air), CT - chest: report reviewed by me (No pulmonary embolism)
[2017-04-21] MEDS ORDERED: CIPROFLOXACIN 400 MG/200 ML PREMIX IV ONE (17:50)
[2017-04-21] MEDS ORDERED: traZODone 50 MG TABLET PO PRN (19:41)
[2017-04-21] MEDS ORDERED: ONDANSETRON 4 MG/2 ML VIAL IV PRN (19:41)
[2017-04-21] MEDS ORDERED: ACETAMINOPHEN 325 MG TABLET PO PRN (19:41)
[2017-04-21] MEDS: CYPROHEPTADINE 4 MG TABLET PO SCH (20:47)
[2017-04-21] MEDS: ATORVASTATIN 20 MG TABLET PO SCH (20:47)
[2017-04-21] MEDS: LACTATED RINGERS 1,000 ML IV SCH (20:48)
[2017-04-22] MEDS: LACTATED RINGERS 1,000 ML IV SCH ×3 (05:12→20:08)
--- NOTE | 2017-04-22 08:22 | General Surgery Progress Note ---
Assessment and Plan (1) Abdominal fluid collection Status: Acute Assessment and plan: This patient was admitted with a fluid collection with air in the gallbladder fossa following cholecystectomy in early March. He is scheduled for percutaneous drainage today. I think he can be discharged home once his drain is in place and he is afebrile for 24 hours and he can go home on a course of antibiotics. Cipro and Flagyl should be adequate. He did have positive blood cultures when he was admitted with cholecystitis about 4 weeks ago and we have repeated blood cultures on this admission. There is still pending. 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 Absent: nausea, vomiting Exam - Constitutional Vitals: Period Temp Pulse Resp BP Sys/Lantigua Pulse Ox Last 24 Hr 98.3 F-100.3 F 71-79 18-20 101-147/55-70 94-96 General appearance: normal weight, no acute distress - Head Head exam: Present: normal inspection, normocephalic - Eye Eye exam: Present: EOMI Pupils: Present: AIDEN - ENT ENT exam: Present: normal exam Mouth exam: Present: normal external inspection, normal voice - Neck Neck exam: Present: normal inspection, trachea midline - Respiratory Respiratory exam: Present: clear to auscultation bilaterally. Absent: accessory muscle use, chest wall tenderness - Cardiovascular Cardiovascular exam: Present: RRR. Absent: systolic murmur, tachycardia - GI/Abdominal GI/Abdominal exam: Present: normal bowel sounds, soft. Absent: tenderness, rebound - Extremities Exam Extremities exam: Present: normal inspection, normal capillary refill - Back Exam Back exam: Present: normal inspection - Neurological Exam Neurological exam: Present: alert, oriented X3 Speech: Present: normal - Skin Skin exam: Present: normal color, warm Results - Labs CBC & BMP: 04/21/17 14:36 04/21/17 14:36
[2017-04-22] MEDS ORDERED: DIAZEPAM 5 MG TABLET PO ONE (08:33)
--- NOTE | 2017-04-22 08:37 | History and Physical Update ---
Sedation H&P Update - History and Physical H&P was reviewed, the patient examined and there: are no changes in the patients condition since last H&P was completed. (Percutaneous abscess draiinage is requested.) - Dictation Physical: refer to scanned H&P - Sedation Plan for Sedation: minimal Patient Consent: Procedure disscussed with patient and patinet has consented., Risks and benefits were discussed with patient,including infection,, bleeding, injury to surrounding structures, seizure, temporary nerve, Patient understands and accepts potential risks/benefits and agrees to, proceed. ASA Class: II Airway Assessment: Class II: Soft palate, uvula, fauces visible
[2017-04-22] MEDS ORDERED: PANTOPRAZOLE 40 MG TABLET PO SCH (09:00)
[2017-04-22 09:01] LABS: Basophils % 0.3 % (0.0-0.8); Eosinophils # 0.2 10*3/uL (0.0-0.87); Eosinophils % 2.6 % (0.00-10.9); Hemoglobin 11.6 GM/DL (14.0-18.0); Immature Granulocytes % 0.6 %; Immature Granulocytes Absolute 0.05 #; Lymphocytes # 0.9 10*3/uL (1.4-4.0); Lymphocytes % 9.8 % (21.2-54.2); Mean Corpuscular HGB Conc 33.1 GM/DL (32-36); Mean Corpuscular Hemoglobin 29 PG (27-34); Mean Corpuscular Volume 86.8 FL (87-102); Mean Platelet Volume 10.4 FL (9.6-12.0); Monocytes # 0.9 10*3/uL (0.11-0.8); Monocytes % 10.3 % (1.7-12.7); Neutrophils # 6.8 10*3/uL (1.4-7.4); Neutrophils % 76.4 % (38.7-73.9); Platelet Count 209 T/CUMM (130-400); Red Blood Count 4.03 MC/CUMM (3.8-5.5); Red Cell Distribution Width 13.1 % (9.3-17.3); White Blood Count 8.9 T/CUMM (4-12)
[2017-04-22 09:41] LABS: Albumin 2.1 G/DL (3.4-5.0); Bilirubin,Total 0.9 MG/DL (0.2-1.0); Calcium 8.7 MG/DL (8.5-10.1); Osmolality,Calculated 277.5 MOS/KG (273-304); Potassium 4.7 MMOL/L (3.5-5.1); Total Protein 5.6 G/DL (6.4-8.3)
[2017-04-22] MEDS: PANTOPRAZOLE 40 MG TABLET PO SCH (10:50)
[2017-04-22] MEDS: ATENOLOL 25 MG TABLET PO SCH (10:50)
[2017-04-22] MEDS: CYANOCOBALAMIN 500 MCG TABLET PO SCH (10:51)
[2017-04-22] MEDS: OMEGA 3 ACID ETHYL ESTERS 1 GM CAPSULE PO SCH (10:52)
[2017-04-22] MEDS: CHOLECALCIFEROL 1,000 UNIT TABLET PO SCH (10:52)
[2017-04-22] MEDS: ASPIRIN EC 81 MG TABLET PO SCH (10:52)
[2017-04-22] MEDS: THIAMINE 100 MG TABLET PO SCH (10:53)
[2017-04-22] MEDS: ALLOPURINOL 100 MG TABLET PO SCH (10:53)
[2017-04-22] MEDS: ASCORBIC ACID 500 MG TABLET PO SCH (10:53)
[2017-04-22] MEDS: CYPROHEPTADINE 4 MG TABLET PO SCH ×3 (10:54→20:08)
[2017-04-22] MEDS: FOLIC ACID 1 MG TABLET PO SCH (10:54)
[2017-04-22] MEDS: LOSARTAN 50 MG TABLET PO SCH (11:08)
[2017-04-22] MEDS: ATORVASTATIN 20 MG TABLET PO SCH (20:08)
--- NOTE | 2017-04-22 21:45 | Post Interventional Procedure ---
Pre-op diagnosis: Peritoneal abscess right upper quadrant Procedure: CT-guided abscess drainage peritoneal Radiologist: Karey Issa Heater Tender: Remigio Child Anesthesia: local Specimens: other (fluid sample sent to lab) Estimated blood loss: none Complications: none Condition: stable Description/Findings: Informed consent was obtained. A formal timeout was performed. The right upper quadrant was prepped and draped in sterile fashion. Under CT guidance, an 8 Arabic pigtail catheter was advanced into the abnormal fluid collection using trocar technique from a right lateral approach. A captured CT image documents initial needle position. The needle was removed. Through the catheter, we initially obtained approximately 10 cc of chocolate covered pus. Fluid sample was sent to the laboratory for Gram stain and culture. Drainage catheter was left in place with accordion bag. Sterile dressing was placed over the catheter site. The patient tolerated the procedure well. There is no significant blood loss. No immediate complications were encountered. Impression: CT-guided abscess drainage was performed. 8 Arabic pigtail catheter was left in place. Assessment and Plan - Time spent with patient Time spent with patient: Less than 30 minutes
--- NOTE | 2017-04-22 21:48 | CT Report ---
History: Peritoneal abscess right upper quadrant Date: 04/22/2017 Study: CT-guided abscess drainage peritoneal Comparison exam: CT abdomen and pelvis from yesterday Informed consent was obtained. A formal timeout was performed. The right upper quadrant was prepped and draped in sterile fashion. Under CT guidance, an 8 [place] pigtail catheter was advanced into the abnormal fluid collection using trocar technique from a right lateral approach. A captured CT image documents initial needle position. The needle was removed. Through the catheter, we initially obtained approximately 10 cc of chocolate covered pus. Fluid sample was sent to the laboratory for Gram stain and culture. Drainage catheter was left in place with accordion bag. Sterile dressing was placed over the catheter site. The patient tolerated the procedure well. There is no significant blood loss. No immediate complications were encountered. Impression: CT-guided abscess drainage was performed. 8 [place] pigtail catheter was left in place. PROCEDURE INTERPRETED AT [facility] DEPARTMENT OF RADIOLOGY Final Report Signed by: Dr. Karey Issa
[2017-04-23] MEDS: LACTATED RINGERS 1,000 ML IV SCH ×2 (01:40→12:45)
[2017-04-23] MEDS: HYDROmorphone 2 MG/1 ML VIAL IV PRN ×2 (06:34→21:38)
[2017-04-23] MEDS: OMEGA 3 ACID ETHYL ESTERS 1 GM CAPSULE PO SCH (09:03)
[2017-04-23] MEDS: CYPROHEPTADINE 4 MG TABLET PO SCH ×3 (09:04→20:18)
[2017-04-23] MEDS: ASCORBIC ACID 500 MG TABLET PO SCH (09:04)
[2017-04-23] MEDS: CYANOCOBALAMIN 500 MCG TABLET PO SCH (09:04)
[2017-04-23] MEDS: LOSARTAN 50 MG TABLET PO SCH (09:05)
[2017-04-23] MEDS: CHOLECALCIFEROL 1,000 UNIT TABLET PO SCH (09:06)
[2017-04-23] MEDS: ATENOLOL 25 MG TABLET PO SCH (09:06)
[2017-04-23] MEDS: ALLOPURINOL 100 MG TABLET PO SCH (09:07)
[2017-04-23] MEDS: ASPIRIN EC 81 MG TABLET PO SCH (09:08)
[2017-04-23] MEDS: FOLIC ACID 1 MG TABLET PO SCH (09:08)
[2017-04-23] MEDS: PANTOPRAZOLE 40 MG TABLET PO SCH (09:08)
[2017-04-23] MEDS: THIAMINE 100 MG TABLET PO SCH (09:10)
--- NOTE | 2017-04-23 11:55 | General Surgery Progress Note ---
Assessment and Plan - Time spent with patient Time spent with patient: Less than 30 minutes (1) Abscess Status: Acute Assessment and plan: He feels well but spiked a fever of 103 this morning. This is since come down. He has no specific complaints and his abdomen appears benign and is normal white blood cell count. We will continue with IV antibiotics and drainage for now. Current Visit: Yes Subjective Patient reports: Present: feels better, pain is less, fever. Absent: nausea, vomiting, shortness of breath Exam - Constitutional Vitals: Period Temp Pulse Resp BP Sys/Lantigua Pulse Ox Last 24 Hr 98.4 F-103.1 F 63-68 18-20 122-137/63-72 94-97 General appearance: no acute distress - Eye Eye exam: Absent: scleral icterus - Respiratory Respiratory exam: Absent: accessory muscle use - GI/Abdominal GI/Abdominal exam: Present: soft. Absent: distended, tenderness Results - Labs CBC & BMP: 04/22/17 08:16 04/22/17 08:16 Lab Results: I have reviewed the past 24 hour labs
[2017-04-23] MEDS: PIPERACILLIN/TAZOBACTAM 3,375 MG in SODIUM CHLORIDE 0.9% 100 ML IV SCH ×2 (12:44→20:18)
[2017-04-23] MEDS: ATORVASTATIN 20 MG TABLET PO SCH (20:18)
[2017-04-24] MEDS: LACTATED RINGERS 1,000 ML IV SCH ×2 (00:28→09:39)
[2017-04-24] MEDS: HYDROmorphone 2 MG/1 ML VIAL IV PRN (04:13)
[2017-04-24] MEDS: PIPERACILLIN/TAZOBACTAM 3,375 MG in SODIUM CHLORIDE 0.9% 100 ML IV SCH ×3 (04:14→23:25)
--- NOTE | 2017-04-24 08:36 | General Surgery Progress Note ---
Assessment and Plan (1) Abdominal fluid collection Status: Acute Assessment and plan: Patient is clinically improving. Currently on IV Zosyn, so we will continue this. Cultures growing gram-negative rods. We will attempting out of bed today. Contact precautions. Initiate Lovenox for DVT prophylaxis. SCDs are in place. Current Visit: Yes (2) Urinary tract bacterial infections Status: Acute Assessment and plan: Patient with MRSA in urine. 80,000 90,000 CFU; gram-negative jewels without speciation yet. Considering this may be an incomplete/failed treatment from recent MRSA infection earlier this month, we will add vancomycin. Pharmacy consult for dosing. Contact precautions. Repeat urine culture prior to administration. Will obtain CBC and BMP to follow along. Current Visit: Yes Subjective Patient reports: Present: feels better, still having pain, tolerating a regular diet, afebrile (Patient has not gotten out of bed as he states he has been very weak, but he does feel much improved and feels he is likely up to this task today.) Exam - Constitutional Vitals: Period Temp Pulse Resp BP Sys/Lantigua Pulse Ox Last 24 Hr 97.2 F-103.1 F 60-102 17-20 93-141/53-74 90-95 General appearance: no acute distress, over weight - Head Head exam: Present: normal inspection, normocephalic - Eye Eye exam: Absent: conjunctival injection, scleral icterus - Respiratory Respiratory exam: Present: clear to auscultation bilaterally - Cardiovascular Cardiovascular exam: Present: RRR - GI/Abdominal GI/Abdominal exam: Present: normal bowel sounds, soft (Minimal abdominal tenderness right sided). Absent: distended, firm, guarding, rebound - Extremities Exam Extremities exam: Absent: calf tenderness, edema - Neurological Exam Neurological exam: Present: alert, oriented X3 Speech: Present: normal - Skin Skin exam: Present: normal color, warm Results - Labs CBC & BMP: 04/22/17 08:16 04/22/17 08:16 Labs: No new labs today. Pending. Blood cultures: No growth preliminarily Urine cultures: 80-90,000 colonies MRSA; urine culture results greater than 100,000 CFU MRSA
[2017-04-24] MEDS: OMEGA 3 ACID ETHYL ESTERS 1 GM CAPSULE PO SCH (09:36)
[2017-04-24] MEDS: CHOLECALCIFEROL 1,000 UNIT TABLET PO SCH (09:36)
[2017-04-24] MEDS: CYPROHEPTADINE 4 MG TABLET PO SCH ×3 (09:36→20:09)
[2017-04-24] MEDS: LOSARTAN 50 MG TABLET PO SCH (09:36)
[2017-04-24] MEDS: THIAMINE 100 MG TABLET PO SCH (09:37)
[2017-04-24] MEDS: ATENOLOL 25 MG TABLET PO SCH (09:37)
[2017-04-24] MEDS: ASCORBIC ACID 500 MG TABLET PO SCH (09:37)
[2017-04-24] MEDS: PANTOPRAZOLE 40 MG TABLET PO SCH (09:37)
[2017-04-24] MEDS: ALLOPURINOL 100 MG TABLET PO SCH (09:37)
[2017-04-24] MEDS: CYANOCOBALAMIN 500 MCG TABLET PO SCH (09:37)
[2017-04-24] MEDS: ASPIRIN EC 81 MG TABLET PO SCH (09:37)
[2017-04-24] MEDS: FOLIC ACID 1 MG TABLET PO SCH (09:37)
[2017-04-24] MEDS: ENOXAPARIN 40 MG/0.4 ML SYRINGE SUBCUT SCH (09:38)
[2017-04-24] MEDS: VANCOMYCIN INJ 1,500 MG in SODIUM CHLORIDE 0.9% 500 ML IV SCH ×2 (10:15→20:03)
[2017-04-24 10:30] LABS: Apearance,Urine CLEAR (Clear); Bacteria,Urine Occasional /HPF (Few); Bilirubin,Urine Negative (Negative); Blood, Urine Negative (Negative); Glucose,Urine (UA) Negative (Negative); Ketones,Urine Negative (Negative); Mucus,Urine Occasional /LPF (Occasional); Nitrite,Urine Negative (Negative); Protein,Urine Negative; RBC,Urine 3 /HPF (0-4); Squamous Epithelial Cell,Urine Occasional /HPF (0-10); Urine Color Yellow (Yellow); Urine Specific Gravity 1.011 (1.001-1.035); Urine Urobilinogen < 2.0 EU/DL (0.2-1.0); WBC,Urine 12 /HPF (0-6)
[2017-04-24 11:13] LABS: Basophils % 0.3 % (0.0-0.8); Eosinophils # 0.4 10*3/uL (0.0-0.87); Eosinophils % 3.4 % (0.00-10.9); Hematocrit 36.4 VOL% (42.0-52.0); Hemoglobin 12.1 GM/DL (14.0-18.0); Immature Granulocytes % 0.7 %; Immature Granulocytes Absolute 0.07 #; Lymphocytes # 0.9 10*3/uL (1.4-4.0); Lymphocytes % 8.5 % (21.2-54.2); Mean Corpuscular HGB Conc 33.2 GM/DL (32-36); Mean Corpuscular Hemoglobin 29 PG (27-34); Mean Corpuscular Volume 86.7 FL (87-102); Monocytes # 0.8 10*3/uL (0.11-0.8); Monocytes % 8.1 % (1.7-12.7); Neutrophils # 8.2 10*3/uL (1.4-7.4); Platelet Count 224 T/CUMM (130-400); Red Cell Distribution Width 13.2 % (9.3-17.3); White Blood Count 10.3 T/CUMM (4-12)
[2017-04-24 11:47] LABS: Calcium 8.7 MG/DL (8.5-10.1); Osmolality,Calculated 279.5 MOS/KG (273-304); Potassium 4.5 MMOL/L (3.5-5.1)
[2017-04-24] MEDS: ATORVASTATIN 20 MG TABLET PO SCH (20:09)
--- NOTE | 2017-04-25 04:36 | General Surgery Progress Note ---
Assessment and Plan (1) Abdominal fluid collection Status: Acute Assessment and plan: Treat urine with bactrim and gallbladder fossa abscess with ceftriaxone. The patient would prefer to go home. Will see if he qualifies for home IV antibiotics. If not, he will need to go to a swing bed unit to complete 2 weeks of antibiotics and perc drainage. Current Visit: Yes Subjective Patient reports: Present: no new complaints, feels better, pain is less, flatus , bowel movement, afebrile Narrative: Percutaneous drain placed in gallbladder fossa on Monday. E coli from drain and MRSA from urine although patient does have an ileal conduit. He is afebrile. Exam - Constitutional Vitals: Period Temp Pulse Resp BP Sys/Lantigua Pulse Ox Last 24 Hr 97.2 F-99.9 F 66-85 18-20 116-152/60-69 89-99 General appearance: no acute distress, over weight - Head Head exam: Present: normal inspection, normocephalic - Eye Eye exam: Present: EOMI Pupils: Present: AIDEN - ENT ENT exam: Present: normal exam Mouth exam: Present: normal external inspection, normal voice - Neck Neck exam: Present: normal inspection, trachea midline - Respiratory Respiratory exam: Present: clear to auscultation bilaterally. Absent: accessory muscle use, chest wall tenderness - Cardiovascular Cardiovascular exam: Present: RRR. Absent: systolic murmur, tachycardia - GI/Abdominal GI/Abdominal exam: Present: soft, other (perc drain with serosanguinous fluid). Absent: tenderness, rebound - Extremities Exam Extremities exam: Present: normal inspection, normal capillary refill - Back Exam Back exam: Present: normal inspection - Neurological Exam Neurological exam: Present: alert, oriented X3 Speech: Present: normal - Skin Skin exam: Present: normal color, warm Results - Labs CBC & BMP: 04/24/17 10:37 04/24/17 10:37
[2017-04-25] MEDS: PIPERACILLIN/TAZOBACTAM 3,375 MG in SODIUM CHLORIDE 0.9% 100 ML IV SCH (04:42)
[2017-04-25] MEDS: cefTRIAXone 1,000 MG in SODIUM CHLORIDE 0.9% 100 ML IV SCH (04:57)
[2017-04-25 06:20] LABS: Basophils % 0.3 % (0.0-0.8); Eosinophils # 0.3 10*3/uL (0.0-0.87); Eosinophils % 3.3 % (0.00-10.9); Hematocrit 36.3 VOL% (42.0-52.0); Hemoglobin 11.6 GM/DL (14.0-18.0); Immature Granulocytes % 0.7 %; Immature Granulocytes Absolute 0.07 #; Lymphocytes # 0.9 10*3/uL (1.4-4.0); Lymphocytes % 9.7 % (21.2-54.2); Mean Corpuscular Hemoglobin 28 PG (27-34); Mean Corpuscular Volume 87.1 FL (87-102); Mean Platelet Volume 10.3 FL (9.6-12.0); Monocytes % 10.1 % (1.7-12.7); Neutrophils # 7.2 10*3/uL (1.4-7.4); Neutrophils % 75.9 % (38.7-73.9); Platelet Count 233 T/CUMM (130-400); Red Blood Count 4.17 MC/CUMM (3.8-5.5); Red Cell Distribution Width 13.2 % (9.3-17.3); White Blood Count 9.5 T/CUMM (4-12)
[2017-04-25 06:45] LABS: Calcium 8.7 MG/DL (8.5-10.1); Osmolality,Calculated 280.4 MOS/KG (273-304); Potassium 4.4 MMOL/L (3.5-5.1)
[2017-04-25] MEDS: ATENOLOL 25 MG TABLET PO SCH (09:32)
[2017-04-25] MEDS: ALLOPURINOL 100 MG TABLET PO SCH (09:33)
[2017-04-25] MEDS: THIAMINE 100 MG TABLET PO SCH (09:33)
[2017-04-25] MEDS: PANTOPRAZOLE 40 MG TABLET PO SCH (09:33)
[2017-04-25] MEDS: ASPIRIN EC 81 MG TABLET PO SCH (09:34)
[2017-04-25] MEDS: ASCORBIC ACID 500 MG TABLET PO SCH (09:34)
[2017-04-25] MEDS: LOSARTAN 50 MG TABLET PO SCH (09:34)
[2017-04-25] MEDS: FOLIC ACID 1 MG TABLET PO SCH (09:35)
[2017-04-25] MEDS: CHOLECALCIFEROL 1,000 UNIT TABLET PO SCH (09:35)
[2017-04-25] MEDS: CYANOCOBALAMIN 500 MCG TABLET PO SCH (09:35)
[2017-04-25] MEDS: CYPROHEPTADINE 4 MG TABLET PO SCH ×3 (09:35→21:18)
[2017-04-25] MEDS: SULFAMETHOX/TRIMETHOPRIM 800-160 MG TABLET PO SCH ×2 (09:36→21:18)
[2017-04-25] MEDS: OMEGA 3 ACID ETHYL ESTERS 1 GM CAPSULE PO SCH (09:36)
[2017-04-25] MEDS: ENOXAPARIN 40 MG/0.4 ML SYRINGE SUBCUT SCH (09:37)
--- NOTE | 2017-04-25 11:45 | Physician Query Form ---
CLICK EDIT DOCUMENT TO SELECT QUERY ANSWER --> OK --> SIGN Laura Pearce RN Clinical Oral Surgery Technician W) [phone] (f) [phone] [email or web address]: Make your selection(s) from the choices in EACH section by typing an "x" and enter comments in the comment section. Please use your independent medical judgment in providing your response. This request does not imply that any particular answer is desired or expected. CLINICAL INDICATORS: (Providers should not edit this section) Based on documentation of "complains of weakness and decreased appetite and general deterioration since having laparoscopic cholecystectomy on the second of this month" "Acute abdominal fluid collection" had a CT guided drainage of the abscess and pigtail catheter left in place. Ecoli grew from the drainage. Treated with IV Flagyl, IV Cipro, IV Zosyn, IV Vancomycin, and IV Rocephin. Based on the above, could you clarify the appropriate diagnosis, if significant , that supports the above abnormalities and additional evaluation, monitoring, and/or treatment rendered: ( ) Abscess due to complication of recent laparoscopic cholecystectomy (x) Abscess NOT due to complication of recent laparoscopic cholecystectomy ( ) Other, please specify: ( ) Clinically unable to determine COMMENTS: PLEASE ALSO DOCUMENT RESPONSE IN PROGRESS NOTES AND/OR DISCHARGE SUMMARY Use of terms such as suspected, likely, or probable (associated with a specific diagnosis that is being evaluated, monitored, or treated as if it exists) are acceptable and can be restated in the discharge summary if not ruled out. MTDD
[2017-04-25] MEDS: ATORVASTATIN 20 MG TABLET PO SCH (21:18)
--- NOTE | 2017-04-26 03:58 | General Surgery Progress Note ---
Assessment and Plan (1) Abdominal fluid collection Status: Acute Assessment and plan: The patient is willing to transfer to swing bed. Continue antibiotics and percutaneous drain in transfer once bed is available and insurance approval is achieved. Current Visit: Yes Subjective Patient reports: Present: no new complaints, tolerating a regular diet, flatus, bowel movement, afebrile. Absent: blood in stool Narrative: The patient states that he is willing to go to a swing bed. Exam - Constitutional Vitals: Period Temp Pulse Resp BP Sys/Lantigua Pulse Ox Last 24 Hr 97.9 F-99.0 F 71-83 16-21 125-147/57-75 90-94 General appearance: no acute distress, over weight - Head Head exam: Present: normal inspection, normocephalic - Eye Eye exam: Present: EOMI Pupils: Present: AIDEN - ENT ENT exam: Present: normal exam Mouth exam: Present: normal external inspection - Neck Neck exam: Present: normal inspection, trachea midline - Respiratory Respiratory exam: Present: clear to auscultation bilaterally. Absent: accessory muscle use, chest wall tenderness - Cardiovascular Cardiovascular exam: Present: RRR. Absent: systolic murmur, tachycardia - GI/Abdominal GI/Abdominal exam: Present: soft, other (Percutaneous drain has purulent drainage that is decreasing. There is no bile in the drain. Abdominal exam is benign otherwise.). Absent: tenderness, rebound - Extremities Exam Extremities exam: Present: normal inspection, normal capillary refill - Back Exam Back exam: Present: normal inspection - Neurological Exam Neurological exam: Present: alert, oriented X3 Speech: Present: normal - Skin Skin exam: Present: normal color, warm Results - Labs CBC & BMP: 04/25/17 05:16 04/25/17 05:16
[2017-04-26] MEDS: cefTRIAXone 1,000 MG in SODIUM CHLORIDE 0.9% 100 ML IV SCH (05:56)
--- NOTE | 2017-04-26 08:11 | Physician Query Form ---
CLICK EDIT DOCUMENT TO SELECT QUERY ANSWER --> OK --> SIGN Laura Pearce RN Clinical Impregnation Operator W) [phone] (f) [phone] [email or web address] PROVIDERS: Make your selection(s) from the choices in EACH section by typing an "x" and enter comments in the comment section. Please use your independent medical judgment in providing your response. This request does not imply that any particular answer is desired or expected. CLINICAL INDICATORS: (Providers should not edit this section) Based on documentation of "renal insufficiency" Creatinine from 1.50 to 1.10. GFR from 63 to 90. Treated with NS bolus followed by infusion. Monitored with serial lab checks. Clarify which of the following most accurately represents the patient's renal status: ) Acute kidney injury (non-traumatic) ( ) Acute renal failure (x) Acute renal failure with underlying Chronic Kidney Disease (CKD) - please provide stage below ( ) Acute renal failure with pathological renal lesion ( ) Acute renal failure with necrosis ( ) tubular ( ) medullary ( ) cortical ( ) CKD - please provide stage below ( ) End Stage Renal Disease ( ) Acute interstitial nephritis ( ) Hepatorenal syndrome ( ) Other, please specify: ( ) Clinically unable to determine Chronic Kidney Disease Stages Source: National Kidney Disease Foundation ( ) Stage I (eGFR > or = 90) ( ) Stage II (eGFR 60 - 89) ( ) Stage III (eGFR 30 - 59) ( ) Stage IV (eGFR 15 - 29) ( ) Stage V (eGFR < 15 or dialysis) COMMENTS: PLEASE ALSO DOCUMENT RESPONSE IN PROGRESS NOTES AND/OR DISCHARGE SUMMARY Use of terms such as suspected, likely, or probable (associated with a specific diagnosis that is being evaluated, monitored, or treated as if it exists) are acceptable and can be restated in the discharge summary if not ruled out. MTDD
[2017-04-26] MEDS: ASPIRIN EC 81 MG TABLET PO SCH (11:33)
[2017-04-26] MEDS: FOLIC ACID 1 MG TABLET PO SCH (11:33)
[2017-04-26] MEDS: LOSARTAN 50 MG TABLET PO SCH (11:33)
[2017-04-26] MEDS: SULFAMETHOX/TRIMETHOPRIM 800-160 MG TABLET PO SCH ×2 (11:33→20:29)
[2017-04-26] MEDS: THIAMINE 100 MG TABLET PO SCH (11:34)
[2017-04-26] MEDS: CYANOCOBALAMIN 500 MCG TABLET PO SCH (11:34)
[2017-04-26] MEDS: CYPROHEPTADINE 4 MG TABLET PO SCH ×3 (11:34→20:29)
[2017-04-26] MEDS: ALLOPURINOL 100 MG TABLET PO SCH (11:34)
[2017-04-26] MEDS: CHOLECALCIFEROL 1,000 UNIT TABLET PO SCH (11:34)
[2017-04-26] MEDS: PANTOPRAZOLE 40 MG TABLET PO SCH (11:34)
[2017-04-26] MEDS: OMEGA 3 ACID ETHYL ESTERS 1 GM CAPSULE PO SCH (11:34)
[2017-04-26] MEDS: ENOXAPARIN 40 MG/0.4 ML SYRINGE SUBCUT SCH (11:34)
[2017-04-26] MEDS: ATENOLOL 25 MG TABLET PO SCH (11:34)
[2017-04-26] MEDS: ASCORBIC ACID 500 MG TABLET PO SCH (11:34)
--- NOTE | 2017-04-26 14:03 | Discharge Summary ---
Hospital Course - Hospital Course Hospital Course: Patient is a 76-year-old male who presented approximately 3 weeks status post ERCP with stone removal for choledocholithiasis and sphincterotomy as well as arthroscopic cholecystectomy is progressing well at home and then decompensated and presented back to the emergency department at which time a gallbladder fossa abscess was identified. Percutaneous drain was placed and IV antibiotics were initiated. Patient responded well. He was ultimately discharged to [facility] on Rocephin (PICC line placed) for E. coli from the abscess aspirate as well as Bactrim for MRSA in his urine. Percutaneous drain should remain. Follow with Dr. irizarry to the clinic in [address] scan as well as evaluation to determine if he has appropriate response. The patient is aware that the time of discharge that he may require surgical intervention if this current treatment method fails. Diagnosis - Discharge Diagnosis (1) Abdominal fluid collection Status: Acute (2) Urinary tract bacterial infections Status: Acute Specialty Discharge - Follow Up or Referrals Follow up with: Obi Gilliland MD [Physician] - (for [facility]; bmp in 5 [address] schedule [address] scan abd/pelvis with iv contrast pending acceptable gfr schedule appointment with dr. gilliland following ct scan [phone]) Discharge Plan - Discharge Data Disposition: Swing Bed, Hos Based, [facility] Condition at Discharge: Stable Discharge Diet: low fat, low cholesterol Activity: no lifting (>10lb) Hygiene: may shower Wound / Dressing Care Instructions: Change percutaneous drain dressing daily. Empty drain and record output every 12 hrs. - Discharge Medications New HYDROcodone/ACETAMIN 7.5-325 [[place] 7.5-325] 1 tablet PO Q4H PRN #60 tablet PRN Reason: Pain Moderate To Severe (4-10) Sulfameth/Trimeth 800-160 Tab [Bactrim DS Tab] 1 tablet PO BID tablet cefTRIAXone [Rocephin] 1,000 mg IV Q24H vial Continue Sitagliptin Phosphate [Januvia] 1 tablet PO DAILY Ascorbic Acid [Vitamin C] 1 tablet PO DAILY [place]-3 Fatty Acids [Fish Oil Concentrate] 1 tablet PO DAILY Folic Acid Tab 1 tablet PO DAILY Pantoprazole Tab [Protonix Tab] 40 mg PO DAILY Glimepiride 4 mg PO DAILY Allopurinol 100 mg PO DAILY Losartan Potassium [Cozaar] 100 mg PO DAILY Atorvastatin [Lipitor] 20 mg PO BEDTIME Thiamine Mononitrate [Vitamin B-1] 100 mg PO DAILY Aspirin [Aspirin EC] 81 mg PO DAILY Metformin HCl [Metformin HCl ER] 500 mg PO BID Atenolol 12.5 mg PO DAILY Cyanocobalamin (Vitamin B-12) [Vitamin B-12] 1,000 mcg PO DAILY Cholecalciferol [Vitamin D3] 1,000 unit PO DAILY Cyproheptadine Tab [Periactin Tab] 4 mg PO TID traZODone [Desyrel] 50 mg PO BEDTIME PRN PRN Reason: Sleep - Follow Up or Referral Follow Up: Obi Gilliland MD [Physician] - (for [facility]; bmp in 5 days schedule [address] scan abd/pelvis with iv contrast pending acceptable gfr schedule appointment with dr. gilliland following ct scan [phone]) - Forms/Instructions Instructions: Abscess (GEN) Additional Discharge Instructions: -Continue bactrim x 10 days. Repeat UA prior to d/c (MRSA urine). -Continue rocephin 1g daily x 14 days. -BMP 5 day. -CT scan with IV contrast abd/pelvis 7 days. -Schedule appt with Dr. Gilliland office 8 days. -Hold metformin 48 hrs before and after scheduled CT scan Exam - Constitutional Vitals: Period Temp Pulse Resp BP Sys/Lantigua Pulse Ox Last 24 Hr 97.3 F-99.0 F 72-83 16-20 124-139/65-68 90-97 General appearance: no acute distress - Head Head exam: Present: normal inspection, normocephalic - Eye Eye exam: Absent: conjunctival injection, scleral icterus - Respiratory Respiratory exam: Present: clear to auscultation bilaterally - Cardiovascular Cardiovascular exam: Present: regular rate and rhythm - GI/Abdominal GI/Abdominal exam: Present: normal bowel sounds, soft, other (Percutaneous drain in place with clean, dry dressing. Purulent drainage in drain.). Absent : tenderness - Extremities Exam Extremities exam: Absent: calf tenderness, edema - Neurological Exam Neurological exam: Present: alert, oriented X3 - Psychiatric Psychiatric exam: Present: normal affect, normal mood - Skin Skin exam: Present: normal color, warm Discharge Results Procedures and tests throughout hospitalization: Pending Orders 04/21/17 16:04 Blood Culture Stat Blood cultures: No growth at 5 days Urine culture MRSA Abscess aspirate culture: E. coli Procedures: Interventional radiology placed percutaneous drain in the gallbladder fossa PICC line placed Labs on day of discharge: Preliminary micro results at discharge 04/21/17 16:04 Blood Culture - Preliminary Blood No growth at 3 days 04/21/17 16:04 Blood Culture - Preliminary Blood No growth at 3 days - Imaging and Cardiology Procedure: CT Abdomen and Pelvis: image reviewed by me, report reviewed by me, CT - chest: image reviewed by me, report reviewed by me DS: Provider Date of admission: 04/21/17 17:32 Primary care physician: . No PCP Attending physician on admission: Obi Gilliland MD Consults: 04/22/17 12:42 Consult to Case Mgmt/Social Srvs [CONS] Routine Reason for Case Mgmt/Social Srvs: Rehab 04/26/17 08:02 Consult to Case Mgmt/Social Srvs [CONS] Routine Reason for Case Mgmt/Social Srvs: Swingbed/SNF/Jail Consult Comment: Ceftriazone 1000mg Q24hr IV x 2 weeks 04/26/17 08:14 Consult to Occupational Therapy [CONS] Routine Reason for Occupational Therapy: Evaluate and Treat Consult Comment: Evaluate and Treat for Swing Bed placement Consult to Physical Therapy [CONS] Routine Reason for Physical Therapy: Evaluate and Treat Consult Comment: Evaluate and Treat for Swing Bed placement Discharging clinician: Lucie Talamantes PA-C
[2017-04-26] MEDS: ATORVASTATIN 20 MG TABLET PO SCH (20:29)
[2017-04-27] MEDS: cefTRIAXone 1,000 MG in SODIUM CHLORIDE 0.9% 100 ML IV SCH (04:03)
[2017-04-27] MEDS: LOSARTAN 50 MG TABLET PO SCH (08:41)
[2017-04-27] MEDS: ASPIRIN EC 81 MG TABLET PO SCH (08:41)
[2017-04-27] MEDS: OMEGA 3 ACID ETHYL ESTERS 1 GM CAPSULE PO SCH (08:42)
[2017-04-27] MEDS: CHOLECALCIFEROL 1,000 UNIT TABLET PO SCH (08:42)
[2017-04-27] MEDS: ALLOPURINOL 100 MG TABLET PO SCH (08:42)
[2017-04-27] MEDS: CYPROHEPTADINE 4 MG TABLET PO SCH ×2 (08:43→15:06)
[2017-04-27] MEDS: THIAMINE 100 MG TABLET PO SCH (08:43)
[2017-04-27] MEDS: CYANOCOBALAMIN 500 MCG TABLET PO SCH (08:43)
[2017-04-27] MEDS: ATENOLOL 25 MG TABLET PO SCH (08:44)
[2017-04-27] MEDS: PANTOPRAZOLE 40 MG TABLET PO SCH (08:44)
[2017-04-27] MEDS: FOLIC ACID 1 MG TABLET PO SCH (08:44)
[2017-04-27] MEDS: ASCORBIC ACID 500 MG TABLET PO SCH (08:44)
[2017-04-27] MEDS: ENOXAPARIN 40 MG/0.4 ML SYRINGE SUBCUT SCH (08:47)
--- NOTE | 2017-04-27 09:08 | General Surgery Progress Note ---
Assessment and Plan (1) Abdominal fluid collection Status: Acute Assessment and plan: PICC line placement today and transfer to swing bed Current Visit: Yes Subjective Patient reports: Present: no new complaints, afebrile Narrative: The patient's discharge was placed on hold for PICC line placement today. Exam - Constitutional Vitals: Period Temp Pulse Resp BP Sys/Lantigua Pulse Ox Last 24 Hr 97.9 F-98.4 F 64-82 18-20 107-124/53-82 92-98 General appearance: no acute distress, over weight - Head Head exam: Present: normal inspection, normocephalic - Eye Eye exam: Present: EOMI Pupils: Present: AIDEN - ENT ENT exam: Present: normal exam Mouth exam: Present: normal external inspection, normal voice - Neck Neck exam: Present: normal inspection, trachea midline - Respiratory Respiratory exam: Present: clear to auscultation bilaterally, accessory muscle use - Cardiovascular Cardiovascular exam: Present: RRR. Absent: systolic murmur, tachycardia - GI/Abdominal GI/Abdominal exam: Present: soft. Absent: tenderness, rebound - Extremities Exam Extremities exam: Present: normal inspection, normal capillary refill - Back Exam Back exam: Present: normal inspection - Neurological Exam Neurological exam: Present: alert, oriented X3 Speech: Present: normal - Skin Skin exam: Present: normal color, warm Results - Labs CBC & BMP: 04/25/17 05:16 04/25/17 05:16 Specialty Discharge - Follow Up or Referrals Follow up with: Obi Gilliland MD [Physician] - (for [facility]; bmp in 5 [address] schedule [address] scan abd/pelvis with iv contrast pending acceptable gfr schedule appointment with dr. gilliland following ct scan [phone])
[2017-04-27] MEDS: SULFAMETHOX/TRIMETHOPRIM 800-160 MG TABLET PO SCH (09:17)
[2017-04-27 13:59] VITALS: BP 127/68
--- NOTE | 2017-04-27 15:59 | Post Interventional Procedure ---
Pre-op diagnosis: gallbladder fossa abscess Post-op diagnosis: same Procedure: PICC placement Contrast: none Flouroscopy: 0.1 min Radiologist: Karthikeyan Rain Anesthesia: local Specimens: none sent Estimated blood loss: minimal (2 mL) Complications: none Condition: stable Description/Findings: left arm 5 FR dual lumen picc placement done and the catheter is ready to use Assessment and Plan - Time spent with patient Time spent with patient: Less than 30 minutes
--- NOTE | 2017-04-27 16:04 | Interventional Radiology Rpt ---
IR PICC line insertion, US guide vascular access IR PICC Placement Peripherally-inserted central catheter (PICC) placement using ultrasound and fluoroscopic guidance Ultrasound of the left upper extremity Clinical Information: Gallbladder fossa abscess. PICC line is requested for long-term intravenous antibiotic administration Physician: Dr. Rain Procedure: The patient was advised of the benefits, risks, and alternatives of the procedure and informed consent was obtained. A time out was performed with verification of the patient's name, MRN, site of procedure, and type of procedure to be performed. The patient was positioned in the supine position on the angiographic table. The site was prepped and draped in the usual sterile fashion. Additionally, maximal sterile barrier technique was employed for the procedure. A concrete pavement installer radiograph reveals no relevant abnormality. Ultrasound examination of the left arm demonstrates patent and compressible brachial and basilic veins. The left arm was prepped and draped in the usual sterile fashion. The left basilic vein was again identified. Using ultrasound guidance, a 21 gauge needle was used to access the vein. A permanent ultrasound recording of vascular access was obtained for the patient's record. A 0.018" cope wire was then advanced into the vein. The needle was exchanged for a 5 Belgian peel-away sheath. A 5 Belgian double lumen Bard Solo PICC catheter was measured and trimmed to the 48 cm sanna. The PICC line was advanced through the sheath and into the central circulation. The catheter tip was positioned at the cavo-atrial junction. The peel-away sheath was then removed. At the conclusion of the procedure, the catheter was secured in place using a Stat-Lock device. A sterile dressing was applied. The lumens aspirate and flush freely. The catheter is ready for immediate use. The patient tolerated the procedure well and was returned to the PRU in stable condition. EBL: < 5 mL. Complications: None. Fluoroscopy time: 0.1 minutes Total number of images for this study: 2 Conclusion: Successful placement of a 5 Belgian double lumen Bard Solo power injectable PICC via the left basilic vein. The catheter is ready for immediate use. PROCEDURE INTERPRETED AT [facility] DEPARTMENT OF RADIOLOGY Final Report Signed by: Karthikeyan Rain
== END 2017-04-27 15:05 | disposition swing bed (61) | DRG 372 ==
LOC: N.ED 13:10 → N.EDINP 17:32 → N.3E 19:40
PROVIDERS: ADMIT Surgery; ATTEND Surgery